=== PATIENT | male | born 1960 | race Caucasian/White ===

== ENCOUNTER → 2017-02-11 | Outpatient (CLI) | payer BC ==
--- NOTE | 2017-02-11 11:52 | USB ---
Reason for exam: additional evaluation requested from abnormal screening. History: Family history of breast cancer in mother and breast cancer in sister. Indicated problem(s): palpable abnormality in both breasts. Physical Findings: Nurse did not find any significant physical abnormalities on exam. US Breast BILAT Right breast ultrasound includes all four quadrants, the retroareolar region and axilla. Finding demonstrate a 0.7 x 0.6 x 0.4cm oval node at 10 o'clock. Left breast ultrasound includes all four quadrants, the retroareolar region and axilla. Finding demonstrate a 1.5 x 0.5 x 0.3cm dilated duct at 2 o'clock. These results were verbally communicated with the patient and result sheet given to the patient on 02/11/17. ASSESSMENT: Benign, BI-RAD 2 RECOMMENDATION: Surgical consultation. Patient scheduled an appointment for 02/12/[address] Diaz PRELIMINARY REPORT CALLED AND FAXED TO DR. DIAZ ON 02/11/17 AT 300/TMP.
== END | disposition home or self-care (01) ==
LOC: RADUSWWP 07:59
PROVIDERS: ATTEND Family Medicine
DX: N62 Hypertrophy of breast (principal)

== ENCOUNTER → 2017-02-20 | Outpatient (CLI) | payer BC ==
--- NOTE | 2017-02-20 08:28 | MM ---
Reason for exam: clinical finding. History: Family history of breast cancer in mother and breast cancer in sister. Indicated problem(s): lump or thickening in the right breast. Physical Findings: Nurse did not find any significant physical abnormalities on exam. [facility] Diagnostic Mammo w CAD KISHAN Bilateral CC and MLO view(s) were taken. There are scattered fibroglandular densities. Finding: There are typically benign round calcifications in the left breast. There is no suspicious dominant lesion. Benign axillary lymph nodes bilaterally. These results were verbally communicated with the patient and result sheet given to the patient on 02/20/17. ASSESSMENT: Benign, BI-RAD 2 RECOMMENDATION: Clinical management of both breasts. Manage patient on a clinical basis.
[2017-02-20 11:33] LABS: Follicle Stimulating Hormone 5.9 mIU/mL (1.6-9.7); Prolactin 13.7 ng/mL (3.7-17.9)
== END | disposition home or self-care (01) ==
LOC: RADMAMWWP 06:56
PROVIDERS: ATTEND Surgery
DX: N62 Hypertrophy of breast (principal)
CPT/HCPCS: 82626; 83001; 83002; 82670; 84443; 84146; 84403; 84702; 36415; G0204

== ENCOUNTER → 2017-05-21 | Outpatient (CLI) | payer BC ==
--- NOTE | 2017-05-21 22:22 | CONS ---
Primary care physician: Dr. Patel. Referring physician is Dr. Kohler. REASON FOR CONSULTATION: Sleep apnea. This is a 56-year-old male patient referred to the sleep center to be investigated for sleep apnea. He has loud snoring. He wakes up sometimes gasping for air. He has restlessness in his lower extremities. Occasionally grinds his teeth and he has nocturia. He goes to be around 10 p.m. , wakes up at 6 a.m. in the morning. Feels non-refreshed. Does not take any naps during the day. 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 Does not drink. Does not smoke. Weight is stable over the past one year although over all over the past five years he has gained some weight. No motor vehicle accident because of feeling drowsy or sleepy. His current Phoenix score is 8. Past medical history: 1. Obesity. 2. Grinding, 3. Depression. 4. Anxiety. 5. CVA. 6. Coronary artery disease with previous [place] and stenting. 7. Hyperlipidemia. 8. ( ) resected. 9. Hypertension. Surgical history: Resection of adrenal nodule/tumor. Hernia repair times two. Varicose vein stripping. Drug allergies are not known. Outpatient Medications: 1. Nitrostat 0.4 on a prn basis. 2. Ativan 0.5 on a prn basis. 3. Plavix 75 daily. 4. Metoprolol 25 mg twice a day. 5. Aspirin 325 mg a day. 6. Lexapro 10 mg po daily. 7. Lisinopril 20 mg po daily. 8. Atorvastatin 80 mg po daily. 9. Norvasc 5 mg po daily. 10. Imdur 30 mg po daily. SOCIAL HISTORY: Nonsmoker. Social alcohol drinker. No history of substance abuse or IV drugs. FAMILY HISTORY: Negative for sleep apnea. Mother had hypertension and coronary artery disease. Father had kidney cancer. REVIEW OF SYSTEMS: 12 point review of systems was done. All of the positive findings were mentioned above in the history of present illness. BP 114/78. Pulse 62, respiratory rate 16, temperature 97.8, saturation 96% on room air. Weight is 259, height 5 feet 11 inches. Neck size is 17. BMI 35.6. General appearance: Calm, comfortable. In no acute distress. HEENT: Negative for JVD. No goiter. No neck masses. Crowding in the posterior pharynx. Grinding of the teeth and an overbite. Lungs clear to auscultation. Heart sounds are regular rate and rhythm, normal S1, S2. Abdomen soft, nontender, no organomegaly. Extremities: No edema, cyanosis or clubbing. IMPRESSION: 1. Clinically suspected obstructive sleep apnea under investigation. 2. Snoring. 3. Overbite with grinding. 4. Hypertension. 5. ( ) adenoma resected. 6. Hyperlipidemia. 7. Coronary artery disease with previous myocardial infarction requiring stenting. 8. CVA. 9. Obesity, BMI 35.6. PLAN: 1. Proceed with sleep study to investigate this patients symptoms of obstructive sleep apnea. 2. We will continue to follow and make further recommendations based on his progress. CHELSEA
== END | disposition home or self-care (01) ==
LOC: SLEEP 13:11
PROVIDERS: ATTEND Internal Medicine Critical Care Medicine
DX: G47.30 Sleep apnea, unspecified (principal); I10 Essential (primary) hypertension; E78.5 Hyperlipidemia, unspecified; E66.9 Obesity, unspecified; M26.29 Other anomalies of dental arch relationship; G47.63 Sleep related bruxism; R06.83 Snoring; I25.10 Atherosclerotic heart disease of native coronary artery without angina pectoris; Z68.35 Body mass index [BMI] 35.0-35.9, adult; F32.9 Major depressive disorder, single episode, unspecified; F41.9 Anxiety disorder, unspecified; Z86.73 Personal history of transient ischemic attack (TIA), and cerebral infarction without residual deficits
CPT/HCPCS: 99211

== ENCOUNTER → 2017-07-05 | Outpatient (CLI) | payer BC ==
[2017-07-05 10:46] LABS: ALT 64 U/L (21-72); AST 32 U/L (17-59); Alkaline Phosphatase 140 U/L (38-126); Anion Gap 9 mmol/L; Blood Urea Nitrogen 14 mg/dL (9-20); Calcium 8.9 mg/dL (8.4-10.2); Carbon Dioxide 28 mmol/L (22-30); Chloride 102 mmol/L (98-107); Cholesterol 104 mg/dL (<200); Glucose 197 mg/dL (74-99); HDL Cholesterol 29 mg/dL (40-60); Non-African American GFR(MDRD) >60 (>60 ml/min/1.73 sqM); Potassium 4.1 mmol/L (3.5-5.1); Sodium 139 mmol/L (137-145); Total Bilirubin 0.6 mg/dL (0.2-1.3); Total Protein 6.7 g/dL (6.3-8.2)
== END | disposition home or self-care (01) ==
LOC: LABWHC1 09:27
PROVIDERS: ATTEND Internal Medicine Interventional Cardiology
DX: E78.2 Mixed hyperlipidemia (principal)
CPT/HCPCS: 36415; 80053; 80061

== ENCOUNTER → 2017-12-03 | Outpatient (CLI) | payer OTHER ==
--- NOTE | 2017-12-03 18:01 | PN ---
PROGRESS NOTE SLEEP CENTER PROGRESS NOTE: This is a pleasant 57-year-old male patient diagnosed having severe symptomatic obstructive sleep apnea with an AHI of 54. During his last evaluation the patient's compliancy data showed suboptimal use. We tried to do some changes with his mask. He was using a Mirage FX nose mask and I switched him to an AirFit P10, and subsequently he decided to go back on his Mirage FX nose mask. He became more compliant and he got progressively more used to his CPAP machine. Currently he is an auto CPAP unit with a minimum pressure of 4, maximum of 12, and he has been averaging around 8.4 hours of CPAP use every night. His CPAP use for more than 4 hours is 28 out of 30. He is benefitting from the treatment. He is waking up much more alert and awake during the day. Leak factor is only 7 L and his AHI is down to 1.4. This is a complete absolute success. Weight is stable at 267. No new complaints otherwise for now. BP is 166/93, pulse 60, respirations 14, temperature 97.4, saturation 92% on room air. Weight is 267. [place] score is 3. BMI 38.3. GENERAL APPEARANCE: Calm, comfortable. No acute distress. Head is atraumatic, normocephalic. Neck is short, supple. No crowding of the posterior pharynx. LUNGS: Clear to auscultation. Heart sounds are regular rate and rhythm. Normal S1, S2. No S3, S4. No murmurs. Abdomen is soft, nontender. No organomegaly. EXTREMITIES: No edema. No cyanosis or clubbing. NEUROLOGIC: Alert and oriented x3. There is no focal neurological deficit. PSYCHIATRIC: No anxiety or depression. IMPRESSION: 1. Severe symptomatic obstructive sleep apnea with an AHI of 54. The patient is currently on auto CPAP, minimum pressure of 4, maximum pressure of 12. His overall compliance has improved and the patient is feeling much better as he continues to benefit from the treatment. 2. Hypersomnia, improved. 3. Obesity with a body mass index of 38. 4. Bruxism. 5. Depression. 6. Cerebrovascular accident. 7. Coronary disease with previous myocardial infarction. 8. Hyperlipidemia. 9. Hypertension. PLAN: Continue CPAP therapy at the same level of pressure utilizing a Mirage FX nose mask. See me back in a year's time, earlier if needed. Encourage weight loss. I will continue to follow. MMODL / IJN: [id number] /
== END | disposition home or self-care (01) ==
LOC: SLEEP 16:40
PROVIDERS: ATTEND Internal Medicine Critical Care Medicine
DX: G47.33 Obstructive sleep apnea (adult) (pediatric) (principal); G47.10 Hypersomnia, unspecified; G47.63 Sleep related bruxism; E66.9 Obesity, unspecified; F32.9 Major depressive disorder, single episode, unspecified; I25.10 Atherosclerotic heart disease of native coronary artery without angina pectoris; I25.2 Old myocardial infarction; E78.5 Hyperlipidemia, unspecified; I10 Essential (primary) hypertension; Z68.38 Body mass index [BMI] 38.0-38.9, adult; Z99.89 Dependence on other enabling machines and devices

== ENCOUNTER → 2018-02-25 | Outpatient (CLI) | payer OTHER ==
[2018-02-25 11:12] LABS: ALT 56 U/L (21-72); AST 33 U/L (17-59); Albumin 3.6 g/dL (3.5-5.0); Alkaline Phosphatase 128 U/L (38-126); Anion Gap 11 mmol/L; Blood Urea Nitrogen 17 mg/dL (9-20); Carbon Dioxide 32 mmol/L (22-30); Chloride 97 mmol/L (98-107); Cholesterol 113 mg/dL (<200); Glucose 113 mg/dL (74-99); HDL Cholesterol 31 mg/dL (40-60); LDL Cholesterol,Calculated 58 mg/dL (0-99); Potassium 3.8 mmol/L (3.5-5.1); Sodium 140 mmol/L (137-145); Total Bilirubin 0.5 mg/dL (0.2-1.3); Total Protein 6.5 g/dL (6.3-8.2); Triglycerides 120 mg/dL (<150)
== END | disposition home or self-care (01) ==
LOC: LABWHC1 09:30
PROVIDERS: ATTEND Internal Medicine Interventional Cardiology
DX: E78.2 Mixed hyperlipidemia (principal)
CPT/HCPCS: 36415; 80053; 80061

== ENCOUNTER → 2018-05-22 | Outpatient (CLI) | payer OTHER | END | disposition home or self-care (01) | LOC: RADMRIMAIN 12:00 | PROVIDERS: ATTEND Family Medicine | DX: Z53.9 Procedure and treatment not carried out, unspecified reason (principal) ==

== ENCOUNTER 2018-05-28 09:07 | Observation (INO) | payer OTHER ==
[2018-05-28] MEDS ORDERED: ASPIRIN 81 MG PO STA (09:36)
--- NOTE | 2018-05-28 09:40 | ED ---
Chest Pain HPI - General Chief Complaint: Chest Pain Stated Complaint: Chest pain Time Seen by Provider: 05/28/18 09:25 Source: patient, RN notes reviewed, old records reviewed Mode of arrival: wheelchair Limitations: no limitations - History of Present Illness Initial Comments: This is a 56-year-old male with a history of heart disease and type 2 diabetes with peripheral neuropathy who states she's been having episodes of intermittent anterior chest pain for past 2 days also elevations in his blood pressure. He states the pain is burning when it is severe 7 and 8/10 severity some sweats associated with it no shortness breath nausea vomiting or other symptoms. He states the pain will come on for anywhere from a few minutes to an hour to 2 hours before resolves. He denies any other complaints at this time he does feel remains him up prior heart pain he's had it. He also notices lately he's been having more tingling in his chest area that he thought was attributed to his neuropathy. MD Complaint: chest pain - Related Data Home Medications Medication Instructions Recorded Confirmed Aspirin EC [Ecotrin Low Dose] 81 mg PO DAILY 05/28/18 05/28/18 Calcium Carbonate [Calcium] 600 mg PO DAILY 05/28/18 05/28/18 Clopidogrel [Plavix] 75 mg PO DAILY 05/28/18 05/28/18 Escitalopram [Lexapro] 10 mg PO DAILY 05/28/18 05/28/18 Hydrochlorothiazide 50 mg PO DAILY 05/28/18 05/28/18 Ibuprofen [Motrin] 800 mg PO Q6H PRN 05/28/18 05/28/18 Isosorbide Mononitrate ER [Imdur] 30 mg PO DAILY 05/28/18 05/28/18 Lisinopril [Zestril] 20 mg PO BID 05/28/18 05/28/18 Metoprolol Tartrate [Lopressor] 25 mg PO BID 05/28/18 05/28/18 Pregabalin [Lyrica] 75 mg PO TID 05/28/18 05/28/18 glipiZIDE [Glucotrol] 5 mg PO AC-BID 05/28/18 05/28/18 metFORMIN HCL 1,000 mg PO TID 05/28/18 05/28/18 Allergies Allergy/AdvReac Type Severity Reaction Status Date / Time perflutren [From [employer] AdvReac Unknown Verified 05/28/18 09:47 Review of Systems ROS Statement: Those systems with pertinent positive or pertinent negative responses have been documented in the HPI. ROS Other: All systems not noted in ROS Statement are negative. EKG Findings - EKG Results: EKG: interpreted by THOR, sinus rhythm (Sinus rhythm rate of 55. Interval 180 QRS duration 106 QT since QTC 456/[address]-T wave changes this compares with an EKG dated 09/02/13) Past Medical History Past Medical History: Diabetes Mellitus, Myocardial Infarction ([place]) Additional Past Medical History / Comment(s): phlebitis History of Any Multi-Drug Resistant Organisms: None Reported Past Surgical History: Heart Catheterization With Stent, Hernia Repair Additional Past Surgical History / Comment(s): tumor removed from left adrenal gland, left adrenal gland removed, stomach tumor removed Past Psychological History: Depression Smoking Status: Former smoker Past Alcohol Use History: Occasional Past Drug Use History: None Reported General Exam - General Exam Comments Initial Comments: This is a well-developed well-nourished awake alert oriented 3 male Limitations: no limitations General appearance: alert, in no apparent distress Head exam: Present: atraumatic, normocephalic, normal inspection Eye exam: Present: normal appearance, PERRL, EOMI. Absent: scleral icterus, conjunctival injection, periorbital swelling ENT exam: Present: normal exam, mucous membranes moist Neck exam: Present: normal inspection. Absent: tenderness, meningismus, lymphadenopathy Respiratory exam: Present: normal lung sounds bilaterally. Absent: respiratory distress, wheezes, rales, rhonchi, stridor Cardiovascular Exam: Present: regular rate, normal rhythm, normal heart sounds. Absent: systolic murmur, diastolic murmur, rubs, gallop, clicks GI/Abdominal exam: Present: soft, normal bowel sounds. Absent: distended, tenderness, guarding, rebound, rigid Extremities exam: Present: normal inspection, full ROM, normal capillary refill. Absent: tenderness, pedal edema, joint swelling, calf tenderness Back exam: Present: normal inspection Neurological exam: Present: alert, oriented X3, CN II-XII intact Psychiatric exam: Present: normal affect, normal mood Skin exam: Present: warm, dry, intact, normal color. Absent: rash Course Vital Signs 05/28/18 09:10 Temperature 98 F Pulse Rate 60 Respiratory 18 Rate Blood Pressure 180/104 O2 Sat by Pulse 96 Oximetry Chest Pain MDM - MDM I did reevaluate the patient no further pain I did discuss the case with Dr. Bull. Patient will be admitted for evaluation for chest pain. X-ray shows no definite acute findings. Critical Care Time Critical Care Time: Yes Critical Care Time: 31 minutes of critical care time includes initial presentation with history physical labs x-rays reevaluation the patient discussed with the patient and admitting physician admission orders and documentation the above. Disposition Clinical Impression: Unstable angina pectoris, Atypical chest pain Disposition: ADMITTED IP TO THIS HOSP Condition: Stable Referrals: Trip Patel DO [Primary Care Provider] - 1-2 days
[2018-05-28 10:24] LABS: Basophils # (A) 0.1 k/uL (0-0.2); Basophils % (A) 1 %; Eosinophils # (A) 0.2 k/uL (0-0.7); Eosinophils % (A) 3 %; HCT 42.2 % (39.0-53.0); Lymphocytes # (A) 2.2 k/uL (1.0-4.8); Lymphocytes % (A) 35 %; MCH 29.1 pg (25.0-35.0); MCHC 33.3 g/dL (31.0-37.0); MCV 87.3 fL (80.0-100.0); Mean Platelet Volume 7.2; Monocytes # (A) 0.3 k/uL (0-1.0); Monocytes % (A) 5 %; Neutrophils # (A) 3.5 k/uL (1.3-7.7); Neutrophils % (A) 54 %; Platelet Count 214 k/uL (150-450); RBC 4.83 m/uL (4.30-5.90); RDW 13.4 % (11.5-15.5); WBC 6.5 k/uL (3.8-10.6)
--- NOTE | 2018-05-28 10:30 | XR ---
EXAMINATION TYPE: XR chest 2V DATE OF EXAM: 05/28/2018 COMPARISON: 12/30/2014 HISTORY: 57-year-old male with chest pain TECHNIQUE: PA and lateral views FINDINGS: Heart upper limits of normal in size. Mild interstitial prominence and mild peribronchial cuffing. Field zy density at the cardiac apex suggests epicardial fat pad. No consolidation or pleural effusion. IMPRESSION: 1. Borderline heart size. 2. Mild peribronchial cuffing could reflect bronchitis or asthma. Otherwise, no acute process seen.
[2018-05-28 10:40] LABS: ALT 61 U/L (21-72); AST 35 U/L (17-59); Albumin 3.6 g/dL (3.5-5.0); Alkaline Phosphatase 123 U/L (38-126); Anion Gap 9 mmol/L; Blood Urea Nitrogen 13 mg/dL (9-20); Carbon Dioxide 29 mmol/L (22-30); Chloride 100 mmol/L (98-107); Glucose 148 mg/dL (74-99); Magnesium 1.6 mg/dL (1.6-2.3); Partial Thromboplastin Time 23.1 sec (22.0-30.0); Potassium 3.9 mmol/L (3.5-5.1); Sodium 138 mmol/L (137-145); Total Bilirubin 0.5 mg/dL (0.2-1.3); Total Protein 6.6 g/dL (6.3-8.2)
[2018-05-28] MEDS ORDERED: HEPARIN SODIUM,PORCINE 5,000 UNIT/ML 1 ML VIAL IV ONE (10:49)
[2018-05-28] MEDS ORDERED: NITROGLYCERIN SL TABS 0.4 MG TAB SUBLINGUAL PRN (10:49)
[2018-05-28 11:07] LABS: Creatine Kinase 108 U/L (55-170)
[2018-05-28 11:22] LABS: Troponin I <0.012 ng/mL (0.000-0.034)
[2018-05-28] MEDS: HEPARIN SOD,PORK IN 0.45% NACL 25,000 UNIT in 0.45% NACL 1 500ML.BAG IV SCH (11:28)
[2018-05-28 12:05] LABS: Glucose,Whole Blood 116 mg/dL (75-99)
[2018-05-28] MEDS: INSULIN ASPART 100 UNIT/ML 1 ML 10 ML VIAL SQ SCH ×3 (12:44→20:30)
[2018-05-28] MEDS: SODIUM CHLORIDE 0.9% 1,000 ML IV SCH (12:47)
[2018-05-28] MEDS ORDERED: ACETAMINOPHEN TAB 325 MG TAB PO PRN (14:25)
[2018-05-28] MEDS: PREGABALIN 75 MG CAP PO SCH ×2 (16:54→21:35)
[2018-05-28 16:59] LABS: Creatine Kinase 100 U/L (55-170)
[2018-05-28 17:12] LABS: Troponin I <0.012 ng/mL (0.000-0.034)
[2018-05-28 17:22] LABS: Glucose,Whole Blood 118 mg/dL (75-99)
[2018-05-28 19:11] LABS: Hemoglobin A1C 8.2 % (4.0-6.0)
[2018-05-28] MEDS: METOPROLOL TARTRATE 25 MG TAB PO SCH (19:41)
[2018-05-28] MEDS: HEPARIN SODIUM,PORCINE 5,000 UNIT/ML 1 ML VIAL IV PRN (19:41)
[2018-05-28] MEDS: LISINOPRIL 20 MG TAB PO SCH (19:42)
[2018-05-28 20:25] LABS: Glucose,Whole Blood 200 mg/dL (75-99)
[2018-05-28 23:03] LABS: Troponin I 0.015 ng/mL (0.000-0.034)
[2018-05-29 02:56] LABS: Cholesterol 102 mg/dL (<200); HDL Cholesterol 28 mg/dL (40-60); LDL Cholesterol,Calculated 50 mg/dL (0-99); Triglycerides 121 mg/dL (<150)
[2018-05-29] MEDS: HEPARIN SODIUM,PORCINE 5,000 UNIT/ML 1 ML VIAL IV PRN (03:02)
[2018-05-29] MEDS: HEPARIN SOD,PORK IN 0.45% NACL 25,000 UNIT in 0.45% NACL 1 500ML.BAG IV SCH (04:35)
[2018-05-29 06:49] LABS: Glucose,Whole Blood 161 mg/dL (75-99)
[2018-05-29 08:28] VITALS: RESP 18
[2018-05-29] MEDS ORDERED: ASPIRIN 325 MG TAB PO SCH (09:00)
[2018-05-29] MEDS ORDERED: HYDROCHLOROTHIAZIDE 50 MG TAB PO SCH (09:00)
[2018-05-29] MEDS ORDERED: CLOPIDOGREL 75 MG TAB PO SCH (09:00)
[2018-05-29] MEDS ORDERED: NON-FORMULARY DRUG (Aspirin Ec 81 MG) PO SCH (09:00)
[2018-05-29] MEDS ORDERED: ISOSORBIDE MONONITRATE ER 30 MG TAB.ER.24H PO SCH (09:00)
[2018-05-29] MEDS ORDERED: CALCIUM CARBONATE 500 MG CHEWABLE PO SCH (09:00)
[2018-05-29] MEDS ORDERED: ESCITALOPRAM 10 MG TAB PO SCH (09:00)
[2018-05-29] MEDS: INSULIN ASPART 100 UNIT/ML 1 ML 10 ML VIAL SQ SCH ×3 (10:20→18:02)
[2018-05-29] MEDS: LISINOPRIL 20 MG TAB PO SCH (10:25)
[2018-05-29] MEDS: PREGABALIN 75 MG CAP PO SCH ×2 (10:25→18:02)
[2018-05-29] MEDS: METOPROLOL TARTRATE 25 MG TAB PO SCH (10:25)
[2018-05-29] MEDS ORDERED: SODIUM CHLORIDE 0.9% 1,000 ML in EMPTY BAG 1 BAG IV ONE (10:49)
[2018-05-29] MEDS ORDERED: ALPRAZolam 0.5 MG TAB PO PRN (10:49)
[2018-05-29] MEDS ORDERED: ALPRAZolam 0.25 MG TAB PO PRN (10:49)
--- NOTE | 2018-05-29 10:55 | P.CRDCN ---
History of Present Illness History of present illness: Mr. Trent is a pleasant 57-year-old male past medical history significant for coronary artery disease s/p stenting of ramus, hypertension, dyslipidemia, obstructive sleep apnea and diabetes mellitus. Most recent cardiac catheterization performed in 2013 revealed patent stent of the ramus intermedius, mild plaque 10-20% of the distal left main, mild ectatic proximal 20-30% disease of the LAD as well as 40% plaque distally, 30-40% proximal disease in the circumflex artery and proximal 30% stenosis of the RCA. He follows with Dr. Kohler in the office. We have been asked to see him in consultation for chest pain. He complains of a pressure burning sensation intermittently for the last 2 days with radiation into neck and left jaw at times with shortness of breath and diaphoresis. No specific aggravating or alleviating factors. Symptoms come at rest mostly. Denies palpitations, dizziness, nausea or vomiting. He denies PND, orthopnea, cough, fever or chills. EKG reveals sinus bradycardia with heart rate 55, no acute ST or T-wave abnormalities noted. Chest xray shows eris-bronchial cuffing with no acute cardiopulmonary process. Laboratory data reviewed, hemoglobin 14.0, platelets 214, sodium 138, potassium 3.9, magnesium 1.6, creatinine 0.62, cardiac enzymes negative 3, proBNP 67, LDL 50 and HDL 28. Current cardiac medications include Imdur 30 mg daily, hydrochlorothiazide 50 mg daily, lisinopril 20 mg twice a day, metoprolol 25 mg twice a day, aspirin 81 mg daily and Plavix 75 mg daily. He also takes Motrin, Glucotrol, Lexapro, metformin and Lyrica. Last stress test in the office was Cardiolite in 2015 was negative for reversible ischemia with fixed defect inferobasal wall. Most recent echo in the office 07/2017 preserved LV systolic function with EF 60 % with mildly dilated LV and mild MR and TR. Review of Systems At the time of my exam: CONSTITUTIONAL: Denies fever. Denies chills. EYES: Denies blurred vision. Denies vision changes. Denies eye pain. EARS, NOSE, MOUTH & THROAT: Denies headache. Denies sore throat. Denies ear pain. CARDIOVASCULAR: Denies chest pain. Denies shortness of breath. Denies orthopnea. Denies PND. Denies palpitations. RESPIRATORY: Denies cough. GASTROINTESTINAL: Denies abdominal pain. Denies diarrhea. Denies constipation. Denies nausea. Denies vomiting. MUSCULOSKELETAL: Denies myalgias. INTEGUMENTARY: Denies pruitis. Denies rash. NEUROLOGIC: Denies numbness. Denies tingling. Denies weakness. PSYCHIATRIC: Denies anxiety. Denies depression. ENDOCRINE: Denies fatigue. Denies weight change. Denies polydipsia. Denies polyurina. GENITOURINARY: Denies burning, hematuria or urgency with micturation. HEMATOLOGIC: Denies history of anemia. Denies bleeding. Past Medical History Past Medical History: Coronary Artery Disease (CAD), CVA/TIA, Diabetes Mellitus , Hyperlipidemia, Hypertension, Myocardial Infarction (NH), Osteoarthritis (OA) , Pneumonia, Sleep Apnea/CPAP/BIPAP Additional Past Medical History / Comment(s): phlebitis left lower extremity, diabetic neuropathy involving the feet and hands, obstructive sleep apnea on CPAP.tirgger finger bay finger, middle finger and thumbs alfred hands, chronic back pain-herniated discs [id number]. spinal stenosis. "told he has had a tia in past" Last Myocardial Infarction Date:: 2013 History of Any Multi-Drug Resistant Organisms: None Reported Past Surgical History: Adenoidectomy, Heart Catheterization With Stent, Hernia Repair, Tonsillectomy Additional Past Surgical History / Comment(s): benign tumor removed from left adrenal gland in 2005 , left adrenal gland removed, benign stomach tumor removed (as infant), alfred inguinal hernia removed, lt leg vein stripping x2 Date of Last Stent Placement:: 2013 Smoking Status: Former smoker - Past Family History Mother Family Medical History: COPD, Hypertension Additional Family Medical History / Comment(s): Mother is alive at age 87 with history of hypertension, copd-2nd hand smoke. Grandmother had history of myocardial infarction and diabetes. Brother(s) Additional Family Medical History / Comment(s): Brothers have history of hypertension. Patient has 1 sister with no major medical problems. Patient has 2 children with no major medical problems. Father Family Medical History: Cancer Additional Family Medical History / Comment(s): lung cancer. Medications and Allergies Home Medications Medication Instructions Recorded Confirmed Type Aspirin EC [Ecotrin Low Dose] 81 mg PO DAILY 05/28/18 05/28/18 History Calcium Carbonate [Calcium] 600 mg PO DAILY 05/28/18 05/28/18 History Clopidogrel [Plavix] 75 mg PO DAILY 05/28/18 05/28/18 History Escitalopram [Lexapro] 10 mg PO DAILY 05/28/18 05/28/18 History Hydrochlorothiazide 50 mg PO DAILY 05/28/18 05/28/18 History Ibuprofen [Motrin] 800 mg PO Q6H PRN 05/28/18 05/28/18 History Isosorbide Mononitrate ER [Imdur] 30 mg PO DAILY 05/28/18 05/28/18 History Lisinopril [Zestril] 20 mg PO BID 05/28/18 05/28/18 History Metoprolol Tartrate [Lopressor] 25 mg PO BID 05/28/18 05/28/18 History Pregabalin [Lyrica] 75 mg PO TID 05/28/18 05/28/18 History glipiZIDE [Glucotrol] 5 mg PO AC-BID 05/28/18 05/28/18 History metFORMIN HCL 1,000 mg PO TID 05/28/18 05/28/18 History Allergies Allergy/AdvReac Type Severity Reaction Status Date / Time perflutren [From ToutApp] AdvReac Unknown Verified 05/28/18 09:47 Physical Exam Vitals: Vital Signs Temp Pulse Pulse Pulse Resp BP BP 05/29/18 03:43 98.5 F 54 L 16 05/29/18 03:12 16 05/28/18 23:47 98.4 F 59 L 05/28/18 23:27 16 05/28/18 19:56 97.6 F 60 16 153/100 05/28/18 19:47 16 05/28/18 15:24 98.2 F 55 L 16 147/84 05/28/18 15:08 16 05/28/18 12:30 16 05/28/18 11:09 97.2 F L 55 L 16 168/88 05/28/18 09:10 98 F 60 18 180/104 BP Pulse Ox 05/29/18 03:43 151/94 95 05/29/18 03:12 05/28/18 23:47 139/80 05/28/18 23:27 05/28/18 19:56 96 05/28/18 19:47 05/28/18 15:24 97 05/28/18 15:08 05/28/18 12:30 05/28/18 11:09 96 05/28/18 09:10 96 Intake and Output 05/28/18 05/29/18 05/29/18 22:59 06:59 14:59 Intake Total 165.667 253.298 Balance 165.667 253.298 Intake: Intake, IV Titration 165.667 253.298 Amount Heparin Sod,Pork in 0.45% 165.667 253.298 NaCl 25,000 unit In 0.45 % NaCl 1 500ml.bag @ 8.1 UNITS/KG/HR 19.84 mls/hr IV .Q24H [facility] Rx#: [id number] Other: Voiding Method Toilet Toilet # Voids 1 Blood pressure 157/96 heart rate 68 afebrile maintaining oxygen saturation on room air GENERAL: This is a 57-year-old male in no apparent distress at the time of my examination. HEENT: Head is atraumatic, normocephalic. Pupils are equal, round. Sclerae anicteric. Conjunctivae are clear. Mucous membranes of the mouth are moist. Neck is supple. There is no jugular venous distention. No carotid bruit is heard. LUNGS: Clear to auscultation no wheezes, rales or rhonchi. No chest wall tenderness is noted on palpation or with deep breathing. HEART: Regular rate and rhythm without murmurs, rubs or gallops. S1 and S2 heard. ABDOMEN: Soft, nontender. Bowel sounds are heard. No organomegaly noted. EXTREMITIES: No evidence of peripheral edema and no calf tenderness noted. VASCULAR: Radial and dorsalis pedis pulses palpated, no evidence of clubbing. NEUROLOGIC: Patient is awake, alert and oriented x3. Results 05/28/18 10:10 05/28/18 10:10 Cardiac Enzymes 05/28/18 05/28/18 05/28/18 Range/Units 10:10 10:10 16:32 AST 35 (17-59) U/L CK-MB (CK-2) 1.0 1.0 (0.0-2.4) ng/mL Troponin I <0.012 <0.012 (0.000-0.034) ng/mL 05/28/18 Range/Units 22:03 AST (17-59) U/L CK-MB (CK-2) 1.0 (0.0-2.4) ng/mL Troponin I 0.015 (0.000-0.034) ng/mL Coagulation 05/28/18 05/28/18 05/29/18 Range/Units 10:10 17:53 02:07 PT 10.0 (9.0-12.0) sec APTT 23.1 26.7 32.0 H (22.0-30.0) sec Lipids 05/29/18 Range/Units 02:07 Triglycerides 121 (<150) mg/dL Cholesterol 102 (<200) mg/dL HDL Cholesterol 28 L (40-60) mg/dL CBC 05/28/18 Range/Units 10:10 WBC 6.5 (3.8-10.6) k/uL RBC 4.83 (4.30-5.90) m/uL Hgb 14.0 (13.0-17.5) gm/dL Hct 42.2 (39.0-53.0) % Plt Count 214 (150-450) k/uL Comprehensive Metabolic Panel 05/28/18 Range/Units 10:10 Sodium 138 (137-145) mmol/L Potassium 3.9 (3.5-5.1) mmol/L Chloride 100 (98-107) mmol/L Carbon Dioxide 29 (22-30) mmol/L BUN 13 (9-20) mg/dL Creatinine 0.62 L (0.66-1.25) mg/dL Glucose 148 H (74-99) mg/dL Calcium 9.0 (8.4-10.2) mg/dL AST 35 (17-59) U/L ALT 61 (21-72) U/L Alkaline Phosphatase 123 (38-126) U/L Total Protein 6.6 (6.3-8.2) g/dL Albumin 3.6 (3.5-5.0) g/dL Current Medications Generic Name Dose Route Start Last Admin Trade Name Freq PRN Reason Stop Dose Admin Acetaminophen 650 mg 05/28/18 14:25 05/28/18 14:33 Tylenol Tab PO 650 mg Q4HR PRN Administration Fever and/ or Pain Aspirin 325 mg 05/29/18 09:00 Aspirin PO DAILY [facility] Calcium Carbonate/Glycine 500 mg 05/29/18 09:00 Tums PO DAILY [facility] Clopidogrel Bisulfate 75 mg 05/29/18 09:00 Plavix PO DAILY [facility] Escitalopram Oxalate 10 mg 05/29/18 09:00 Lexapro PO DAILY [facility] Heparin Sodium (Porcine) 0 unit 05/28/18 19:28 05/29/18 03:02 Heparin IV 4,000 unit PER PROTOCOL PRN Administration Low PTT Protocol Hydrochlorothiazide 50 mg 05/29/18 09:00 Hydrodiuril PO DAILY [facility] Heparin Sodium/Sodium Chloride 500 mls @ 19.84 mls/hr 05/28/18 12:00 04:35 25,000 unit/ Sodium Chloride IV 14.16 units/kg/hr .Q24H [facility] 34.68 mls/hr Administration Protocol 8.1 UNITS/KG/HR Sodium Chloride 1,000 mls @ 20 mls/hr 05/28/18 11:00 05/28/18 12:47 Saline 0.9% IV 20 mls/hr .Q24H [facility] Administration Insulin Aspart 0 unit 05/28/18 12:30 05/28/18 20:30 Novolog SQ 3 unit ACHS [facility] Administration Protocol Isosorbide Mononitrate 30 mg 05/29/18 09:00 Imdur PO DAILY [facility] Lisinopril 20 mg 05/28/18 21:00 05/28/18 19:42 Zestril PO 20 mg BID [facility] Administration Metoprolol Tartrate 25 mg 05/28/18 21:00 05/28/18 19:41 Lopressor PO 25 mg BID [facility] Administration Nitroglycerin 0.4 mg 05/28/18 10:49 05/28/18 12:48 Nitrostat SUBLINGUAL 0.4 mg Q5M PRN Administration Chest Pain Pregabalin 75 mg 05/28/18 16:00 05/28/18 21:35 Lyrica PO 75 mg TID [facility] Administration Intake and Output 05/28/18 05/29/18 05/29/18 22:59 06:59 14:59 Intake Total 165.667 253.298 Balance 165.667 253.298 Intake: Intake, IV Titration 165.667 253.298 Amount Heparin Sod,Pork in 0.45% 165.667 253.298 NaCl 25,000 unit In 0.45 % NaCl 1 500ml.bag @ 8.1 UNITS/KG/HR 19.84 mls/hr IV .Q24H [facility] Rx#: [id number] Other: Voiding Method Toilet Toilet # Voids 1 05/28/18 10:10 05/28/18 10:10 Assessment and Plan Assessment: ASSESSMENT Unstable angina History of coronary artery disease Hypertension Dyslipidemia Diabetes mellitus PLAN Obtain 2D echocardiogram and doppler study to assess cardiac structure and function. An acute coronary event has been ruled out with no EKG evidence of ischemia and negative cardiac enzymes. We recommend proceeding with cardiac catheterization to assess for progression of coronary artery disease. I have discussed the risks, benefits and alternative therapies for the above- mentioned procedure and for both sedation/analgesia as well as necessary blood product administration, if indicated, as they pertain to this patient. The patient has indicated understanding and acceptance of the risks and procedures discussed. Questions have been answered appropriately and he is agreeable to move forward with above stated procedure. Dr. Kohler will do the procedure this afternoon. Further recommendations to follow based on clinical course and catheterization findings. Thank you kindly for this consultation. Nurse Practitioner note has been reviewed, I agree with a documented findings and plan of care. Patient was seen and examined.
[2018-05-29] MEDS: SODIUM CHLORIDE 0.9% 1,000 ML IV SCH (12:15)
[2018-05-29 12:25] LABS: Glucose,Whole Blood 155 mg/dL (75-99)
--- NOTE | 2018-05-29 12:40 | P.PN ---
Subjective Progress Note Date: 05/29/18 This is a 57-year-old male patient of Dr. Patel in Dr. 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 Patient gives history of sudden onset of chest pain that has been ongoing on and off for the past couple of days. He states it somewhat similar to the pain he had with his myocardial infarction 4 years ago. It has been lasting for longer periods of time and up to 10 minutes. It is a burning type sensation in the middle of his chest and upper arms. Patient came into [facility] emergency center for evaluation. Initial troponin was negative. EKG was sinus bradycardia with no acute ST changes. Chest x-ray showed borderline heart size. Mild peribronchial cuffing could reflect bronchitis or asthma. No acute process. He was started on a full strength aspirin, resumed on his home medications and placed on the observation unit with cardiology consult. 05/29 patient examined bedside. Denies any chest pain but does have some tingling burning sensation in the substernal area. Denies any shortness of breath. Troponin 3 negative EKG with no ST or T-wave changes Patient will be taken for cardiac cath today. Objective - Vital Signs Vital signs: Vital Signs Temp 98.4 F 05/29/18 11:49 Pulse 58 L 05/29/18 11:49 Resp 18 05/29/18 11:49 BP 152/97 05/29/18 11:49 Pulse Ox 94 L 05/29/18 11:49 Intake & Output 05/28/18 05/29/18 05/29/18 18:59 06:59 18:59 Intake Total 480 418.965 Balance 480 418.965 Weight 122.47 kg Intake: Intake, IV Titration 418.965 Amount Heparin Sod,Pork in 0.45% 418.965 NaCl 25,000 unit In 0.45 % NaCl 1 500ml.bag @ 8.1 UNITS/KG/HR 19.84 mls/hr IV .Q24H [facility] Rx#: [id number] Oral 480 Other: Voiding Method Toilet Toilet Toilet # Voids 1 1 - Exam - Constitutional General appearance: cooperative, no acute distress, obese - EENT Eyes: anicteric sclerae, PERRLA, normal appearance ENT: hearing grossly normal - Neck Neck: no lymphadenopathy, normal ROM, no other, no rigidity, no stridor, no thyromegaly - Respiratory Respiratory: bilateral: CTA, negative: diminished, dullness, rales, rhonchi - Cardiovascular Rhythm: regular Heart sounds: normal: S1, S2 Abnormal Heart Sounds: 2+systolic murmur, no diastolic murmur, no rub, no S3 Gallop, no S4 Gallop, no click, no other - Gastrointestinal General gastrointestinal: normal bowel sounds, soft - Integumentary Integumentary: no rash - Neurologic Neurologic: CNII-XII intact - Musculoskeletal Musculoskeletal: gait normal, strength equal bilaterally - Psychiatric Psychiatric: A&O x's 3, appropriate affect - Labs CBC & Chem 7: 05/28/18 10:10 05/28/18 10:10 Labs: Abnormal Lab Results - Last 24 Hours (Table) 05/28/18 05/28/18 05/28/18 Range/Units 10:10 17:18 20:24 APTT (22.0-30.0) sec POC Glucose (mg/dL) 118 H 200 H (75-99) mg/dL Hemoglobin A1c 8.2 H (4.0-6.0) % HDL Cholesterol (40-60) mg/dL 05/29/18 05/29/18 05/29/18 Range/Units 02:07 02:07 06:47 APTT 32.0 H (22.0-30.0) sec POC Glucose (mg/dL) 161 H (75-99) mg/dL Hemoglobin A1c (4.0-6.0) % HDL Cholesterol 28 L (40-60) mg/dL 05/29/18 05/29/18 Range/Units 09:05 12:04 APTT 43.5 H (22.0-30.0) sec POC Glucose (mg/dL) 155 H (75-99) mg/dL Hemoglobin A1c (4.0-6.0) % HDL Cholesterol (40-60) mg/dL Assessment and Plan Plan: #1 acute chest pain likely secondary to unstable angina with history of coronary artery disease. Echocardiogram ordered. EKG with no evidence of ischemia, no ST-T wave changes, troponin 3 negative. Plan for cardiac cath today. Continue heparin drip #2 history of coronary artery disease continue patient on aspirin 81 mg Plavix 75 mg, metoprolol 25 mg twice a day, Imdur 30 mg by mouth daily #3 type 2 diabetes controlled with metformin and glipizide. Hold metformin and glipizide to to contract induced nephropathy. Continue insulin sliding scale #4 hypertension continue lisinopril 20 mg twice a day, hydrochlorothiazide 50 mg by mouth daily, metoprolol 25 mg by mouth twice a day #5 history of depression continue Lexapro 10 mg by mouth daily #6 diabetic neuropathy continue Lyrica 75 mg 3 times a day #7 DVT prophylaxis with heparin drip CODE STATUS full code
[2018-05-29] MEDS ORDERED: VERAPAMIL 2.5 MG/ML 2 ML AMP ONE (12:52)
[2018-05-29] MEDS ORDERED: HEPARIN SODIUM 1,000 UN/ML (10ML VL) ONE (12:53)
[2018-05-29] MEDS ORDERED: fentaNYL (PF) 50 MCG/ML 2 ML AMP ONE (12:53)
[2018-05-29] MEDS ORDERED: LIDOCAINE 1% INJ 10MG/ML (20 ML MDV) ONE (12:53)
[2018-05-29] MEDS ORDERED: LIDOCAINE 1% INJ 10MG/ML (10 ML MDV) SQ ONE (13:02)
[2018-05-29] MEDS ORDERED: fentaNYL (PF) 50 MCG/ML 2 ML AMP IV ONE (13:02)
[2018-05-29] MEDS ORDERED: MIDAZOLAM 2 MG/2 ML VIAL ONE (13:02)
[2018-05-29] MEDS ORDERED: VERAPAMIL SYRINGE (5 MG/10 ML) INTRAARTER ONE (13:03)
--- NOTE | 2018-05-29 13:03 | ECHOF ---
Referral Reason:cp MEASUREMENTS -------- HEIGHT: 182.9 cm WEIGHT: 122.5 kg BP: 151/94 RVIDd: 3.4 cm (< 3.3) IVSd: 1.5 cm (0.6 - 1.1) LVIDd: 5.2 cm (3.9 - 5.3) LVPWd: 1.9 cm (0.6 - 1.1) IVSs: 1.8 cm LVIDs: 4.3 cm LVPWs: 1.6 cm LA Diam: 3.5 cm (2.7 - 3.8) LAESV Index (A-L): 21.21 ml/m Ao Diam: 3.4 cm (2.0 - 3.7) AV Cusp: 2.0 cm (1.5 - 2.6) LA Diam: 4.4 cm (2.7 - 3.8) MV EXCURSION: 17.354 mm (> 18.000) MV EF SLOPE: 76 mm/s (70 - 150) EPSS: 0.6 cm MV E Royal: 0.59 m/s MV DecT: 197 ms MV A Royal: 0.65 m/s MV E/A Ratio: 0.90 RAP: 5.00 mmHg RVSP: 16.62 mmHg FINDINGS -------- Sinus rhythm. This was a technically adequate study. The left ventricular size is normal. There is moderate concentric left ventricular hypertrophy. O verall left ventricular systolic function is low-normal with, an EF between 50 - 55 %. The right ventricle is mildly enlarged. The left atrial size is normal. Normal LA size by volume 22+/-6 ml/m2. The right atrial size is normal. The aortic valve is trileaflet, and appears structurally normal. No aortic stenosis or regurgitation. Mild mitral annular calcification present. Mild mitral regurgitation is present. Mild tricuspid regurgitation present. There is no evidence of pulmonary hypertension. The right v entricular systolic pressure, as measured by Doppler, is 16.62mmHg. Trace/mild (physiologic) pulmonic regurgitation. The aortic root size is normal. There is no pericardial effusion. CONCLUSIONS -------- 1. The left ventricular size is normal. 2. There is moderate concentric left ventricular hypertrophy. 3. Overall left ventricular systolic function is low-normal with, an EF between 50 - 55 %. 4. The right ventricle is mildly enlarged. 5. The left atrial size is normal. 6. The right atrial size is normal. 7. The aortic valve is trileaflet, and appears structurally normal. No aortic stenosis or regurgitati on. 8. Mild mitral annular calcification present. 9. Mild mitral regurgitation is present. 10. Mild tricuspid regurgitation present. 11. There is no evidence of pulmonary hypertension. 12. The right ventricular systolic pressure, as measured by Doppler, is 16.62mmHg. 13. Trace/mild (physiologic) pulmonic regurgitation. 14. The aortic root size is normal. 15. There is no pericardial effusion. SPORTS INTERN: Erendira Sauceda RDCS
[2018-05-29] MEDS ORDERED: MIDAZOLAM 2 MG/2 ML VIAL IV ONE (13:05)
[2018-05-29] MEDS ORDERED: IV FLUID CONTINUATION 1,000 ML IV ONE (13:06)
[2018-05-29] MEDS ORDERED: HEPARIN SODIUM 1,000 UN/ML (10ML VL) IV ONE (13:11)
[2018-05-29] MEDS ORDERED: IOPAMIDOL-370 125ML BTL INJ ONE (13:16)
[2018-05-29] MEDS ORDERED: RX INFO: IV CONTRAST WAS GIVEN 1 EACH MISC MISCELLANE PRN (13:27)
[2018-05-29] MEDS ORDERED: SODIUM CHLORIDE 0.9% 1,000 ML IV SCH (13:30)
[2018-05-29] MEDS ORDERED: ONDANSETRON 4 MG/2 ML VIAL IVP PRN (13:33)
--- NOTE | 2018-05-29 13:36 | P.DS ---
Providers Date of admission: 05/28/18 10:53 Attending physician: Dago Bull MD Consults: 05/28/18 10:49 Consult Physician Urgent Consulting Provider: Garret Sanz Consult Reason/Comments: Chest pain Do you want consulting provider notified?: Yes Primary care physician: Trip Patel [facility] Course: This is a 57-year-old male patient of Dr. Patel in Dr. 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 Patient gives history of sudden onset of chest pain that has been ongoing on and off for the past couple of days. He states it somewhat similar to the pain he had with his myocardial infarction 4 years ago. It has been lasting for longer periods of time and up to 10 minutes. It is a burning type sensation in the middle of his chest and upper arms. Patient came into [facility] emergency center for evaluation. Initial troponin was negative. EKG was sinus bradycardia with no acute ST changes. Chest x-ray showed borderline heart size. Mild peribronchial cuffing could reflect bronchitis or asthma. No acute process. He was started on a full strength aspirin, resumed on his home medications and placed on the observation unit with cardiology consult. 05/29 patient examined bedside. Denies any chest pain but does have some tingling burning sensation in the substernal area. Denies any shortness of breath. Troponin 3 negative EKG with no ST or T-wave changes Patient underwent cardiac cath today with patent stent an dno occlusion. Dioscharge diagnosis #1 Atypical chest pain, ACS ruled out coronary artery disease. #2 history of coronary artery disease #3 type 2 diabetes controlled #4 hypertension #5 history of depression #6 diabetic neuropathy CC a copy of discharge to Dr. Edward Patient Condition at Discharge: Stable Plan - Discharge Summary Discharge Rx Participant: No New Discharge Prescriptions: Continue Metoprolol Tartrate [Lopressor] 25 mg PO BID Clopidogrel [Plavix] 75 mg PO DAILY Aspirin EC [Ecotrin Low Dose] 81 mg PO DAILY glipiZIDE [Glucotrol] 5 mg PO AC-BID Lisinopril [Zestril] 20 mg PO BID Hydrochlorothiazide 50 mg PO DAILY Calcium Carbonate [Calcium] 600 mg PO DAILY Ibuprofen [Motrin] 800 mg PO Q6H PRN PRN Reason: Pain Escitalopram [Lexapro] 10 mg PO DAILY metFORMIN HCL 1,000 mg PO TID Pregabalin [Lyrica] 75 mg PO TID Isosorbide Mononitrate ER [Imdur] 30 mg PO DAILY Discharge Medication List Aspirin EC [Ecotrin Low Dose] 81 mg PO DAILY 05/28/18 [History] Calcium Carbonate [Calcium] 600 mg PO DAILY 05/28/18 [History] Clopidogrel [Plavix] 75 mg PO DAILY 05/28/18 [History] Escitalopram [Lexapro] 10 mg PO DAILY 05/28/18 [History] Hydrochlorothiazide 50 mg PO DAILY 05/28/18 [History] Ibuprofen [Motrin] 800 mg PO Q6H PRN 05/28/18 [History] Isosorbide Mononitrate ER [Imdur] 30 mg PO DAILY 05/28/18 [History] Lisinopril [Zestril] 20 mg PO BID 05/28/18 [History] Metoprolol Tartrate [Lopressor] 25 mg PO BID 05/28/18 [History] Pregabalin [Lyrica] 75 mg PO TID 05/28/18 [History] glipiZIDE [Glucotrol] 5 mg PO AC-BID 05/28/18 [History] metFORMIN HCL 1,000 mg PO TID 05/28/18 [History] Follow up Appointment(s)/Referral(s): Arie Kohler MD [STAFF PHYSICIAN] - 1 Week Trip Patel DO [Primary Care Provider] - 1-2 days Discharge Disposition: HOME SELF-CARE
[2018-05-29 13:50] VITALS: TEMP 97.8
--- NOTE | 2018-05-29 15:39 | CC ---
CARDIAC CATHETERIZATION REPORT Mr. Trent is a 57-year-old male with known history of hypertension, hyperlipidemia, prior history of coronary artery disease and stenting of the left circumflex in 2013, who presented with symptoms of chest discomfort. His cardiac enzymes revealed no evidence of acute myocardial infarction. He was evaluated by Dr. Borja and recommendation made regarding cardiac catheterization. The procedures, risks and complication were discussed with the patient who is in full understanding and agreement. 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 Using Xylocaine anesthesia and Seldinger technique, a 6-Jordanian sheath was introduced in the right radial artery. Selective right and left angiography performed using 5-Jordanian 3.5 bend right and left Radha catheter, multiple views of the coronary artery including hemiaxial views obtained. Following that, 5-Jordanian tight pigtail catheter was introduced in the left ventricle and a 30 degree LUIS view of the left ventricle was obtained. Following that, catheter and sheath were removed. Hemostasis was obtained with deployment of a TR band. There was no immediate complication. Patient is returned to his room in stable condition. Of note, the patient received 5000 units of intravenous heparin as well as intra-arterial verapamil. FINDINGS: LEFT MAIN: This is a large-sized vessel trifurcating into left anterior descending artery, left circumflex and ramus intermedius. Left main coronary artery has 10%-20% plaque distally. LEFT ANTERIOR DESCENDING ARTERY: This is a large-sized vessel reaching toward the apex with a wraparound apex segment, giving rise to a moderately sized diagonal branch in mid segment. The vessel is calcified predominantly in the mid segment. It has diffuse intimal disease throughout its course with area stenosis up to 40%. LEFT CIRCUMFLEX: This is a small size vessel, nondominant, that has no evidence of high-grade stenosis. RAMUS INTERMEDIUS: This is a large branching vessel reaching toward the apical lateral wall. The stented segment is patent. In the stent, there is a jailed branch that has an 80% stenosis. The rest of the vessel has no high-grade stenosis. RIGHT CORONARY ARTERY: This is a large dominant vessel, bifurcating into PDA, posterolateral single branches. The right PDA reaches toward the inferoapical wall. The right coronary artery proximally has a 40% to 50% plaque. The rest of the vessel has no high-grade stenosis. LEFT VENTRICULOGRAM: Left ventriculogram was performed in 30 degree LUIS view and revealed normal left ventricular size and systolic function, ejection fraction is 55%. There was no significant mitral regurgitation. HEMODYNAMICS: There was no gradient across the aortic valve, the left ventricular end-diastolic pressure was 10 mmHg. CONCLUSION: 1. Mild to moderate triple-vessel coronary artery disease with significant disease in a jailed branch off the ramus intermedius. 2. Preserved left ventricular size and systolic function. RECOMMENDATION: There is no progression of disease compared with the images obtained in 2014. I would recommend continue medical therapy with aggressive risk modification that has been initiated. Those findings and recommendation were discussed with the patient and his family who are in full understanding and agreement. Duration of procedure is 17 minutes. MMKATELYNNL / VIOLAN: [id number] /
[2018-05-29 15:43] VITALS: BP 151/95; PULSE 57
[2018-05-29 17:14] LABS: Glucose,Whole Blood 213 mg/dL (75-99)
--- NOTE | 2018-05-29 23:58 | P.HPIM ---
History of Present Illness H&P Date: 05/28/18 Chief Complaint: Chest pain This is a 57-year-old male patient of Dr. Patel in Dr. 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 Patient gives history of sudden onset of chest pain that has been ongoing on and off for the past couple of days. He states it somewhat similar to the pain he had with his myocardial infarction 4 years ago. It has been lasting for longer periods of time and up to 10 minutes. It is a burning type sensation in the middle of his chest and upper arms. Patient came into [facility] emergency center for evaluation. Initial troponin was negative. EKG was sinus bradycardia with no acute ST changes. Chest x-ray showed borderline heart size. Mild peribronchial cuffing could reflect bronchitis or asthma. No acute process. He was started on a full strength aspirin, resumed on his home medications and placed on the observation unit with cardiology consult. Review of Systems All systems: negative Constitutional: Denies chills, Denies fever, Denies poor appetite, Denies weakness, Denies weight loss Eyes: denies blurred vision, denies pain Ears, nose, mouth and throat: Denies headache, Denies sore throat, Denies vertigo Cardiovascular: Reports chest pain, Denies decreased exercise tolerance, Denies dyspnea on exertion, Denies edema, Denies leg edema, Denies lightheadedness, Denies shortness of breath, Denies syncope Respiratory: Denies cough Gastrointestinal: Denies abdominal pain, Denies diarrhea, Denies nausea, Denies vomiting Musculoskeletal: Denies myalgias Integumentary: Denies pruritus, Denies rash Neurological: Denies numbness, Denies weakness Psychiatric: Denies anxiety, Denies depression Endocrine: Denies fatigue, Denies weight change Past Medical History Past Medical History: Diabetes Mellitus, Myocardial Infarction ([place]), Sleep Apnea /CPAP/BIPAP Additional Past Medical History / Comment(s): phlebitis left lower extremity, diabetic neuropathy involving the feet and hands, obstructive sleep apnea on CPAP. History of Any Multi-Drug Resistant Organisms: None Reported Past Surgical History: Heart Catheterization With Stent, Hernia Repair Additional Past Surgical History / Comment(s): tumor removed from left adrenal gland, left adrenal gland removed, stomach tumor removed Past Psychological History: Depression Smoking Status: Former smoker Past Alcohol Use History: Occasional Additional Past Alcohol Use History / Comment(s): Patient smoked as a teenager only. Past Drug Use History: None Reported - Past Family History Mother Additional Family Medical History / Comment(s): Mother is alive at age 87 with history of hypertension. Grandmother had history of myocardial infarction and diabetes. Brother(s) Additional Family Medical History / Comment(s): Brothers have history of hypertension. Patient has 1 sister with no major medical problems. Patient has 2 children with no major medical problems. Father Family Medical History: Cancer Additional Family Medical History / Comment(s): lung cancer. Medications and Allergies Home Medications Medication Instructions Recorded Confirmed Type Aspirin EC [Ecotrin Low Dose] 81 mg PO DAILY 05/28/18 05/28/18 History Calcium Carbonate [Calcium] 600 mg PO DAILY 05/28/18 05/28/18 History Clopidogrel [Plavix] 75 mg PO DAILY 05/28/18 05/28/18 History Escitalopram [Lexapro] 10 mg PO DAILY 05/28/18 05/28/18 History Hydrochlorothiazide 50 mg PO DAILY 05/28/18 05/28/18 History Ibuprofen [Motrin] 800 mg PO Q6H PRN 05/28/18 05/28/18 History Isosorbide Mononitrate ER [Imdur] 30 mg PO DAILY 05/28/18 05/28/18 History Lisinopril [Zestril] 20 mg PO BID 05/28/18 05/28/18 History Metoprolol Tartrate [Lopressor] 25 mg PO BID 05/28/18 05/28/18 History Pregabalin [Lyrica] 75 mg PO TID 05/28/18 05/28/18 History glipiZIDE [Glucotrol] 5 mg PO AC-BID 05/28/18 05/28/18 History metFORMIN HCL 1,000 mg PO TID 05/28/18 05/28/18 History Allergies Allergy/AdvReac Type Severity Reaction Status Date / Time perflutren [From Definity] AdvReac Unknown Verified 05/28/18 09:47 Physical Exam Vitals: Vital Signs Temp Pulse Resp BP Pulse Ox 05/28/18 09:10 98 F 60 18 180/104 96 Intake and Output 05/27/18 05/28/18 05/28/18 22:59 06:59 14:59 Other: Weight 122.47 kg Gen: This is a 57-year-old obese male. He is sitting on the ER stretcher and appears to be comfortable and in no acute distress. HEENT: Head is atraumatic, normocephalic. Pupils equal, round. Sclerae is anicteric. NECK: Supple. No JVD. No lymphadenopathy. No thyromegaly. LUNGS: Clear to auscultation. No wheezes or rhonchi. No intercostal retractions. HEART: Regular rate and rhythm. No murmur. ABDOMEN: Soft. Bowel sounds are present. No masses. No tenderness. EXTREMITIES: No pedal edema. No calf tenderness. Dorsalis pedis +2 bilaterally. NEUROLOGICAL: Patient is awake, alert and oriented x3. Cranial nerves 2 through 12 are grossly intact. Results CBC & Chem 7: 05/28/18 10:10 05/28/18 10:10 Thrombosis Risk Factor Assmnt - DVT/VTE Prophylaxis DVT/VTE Prophylaxis: Pharmacologic Prophylaxis ordered Assessment and Plan Plan: #1 acute chest pain likely secondary to unstable angina with history of coronary artery disease. Echocardiogram ordered. EKG with no evidence of ischemia, no ST-T wave changes, troponin 3 negative. Plan for cardiac cath today. Continue heparin drip #2 history of coronary artery disease continue patient on aspirin 81 mg Plavix 75 mg, metoprolol 25 mg twice a day, Imdur 30 mg by mouth daily #3 type 2 diabetes controlled with metformin and glipizide. Hold metformin and glipizide to to contract induced nephropathy. Continue insulin sliding scale #4 hypertension continue lisinopril 20 mg twice a day, hydrochlorothiazide 50 mg by mouth daily, metoprolol 25 mg by mouth twice a day #5 history of depression continue Lexapro 10 mg by mouth daily #6 diabetic neuropathy continue Lyrica 75 mg 3 times a day #7 DVT prophylaxis with heparin drip CODE STATUS full code Patient will be placed on the observation unit. Discharge plan: return home Impression and plan of care have been directed as dictated by the signing physician. Valeria Coats nurse practitioner acting as scribe for signing physician.
[2018-05-30] MEDS ORDERED: ASPIRIN 81 MG PO SCH (09:00)
== END 2018-05-29 19:10 | disposition home or self-care (01) ==
LOC: EC 09:07 → 3OBS 10:53
PROVIDERS: ADMIT Internal Medicine; ATTEND Internal Medicine
DX: R07.89 Other chest pain (principal); R06.02 Shortness of breath; R20.2 Paresthesia of skin; R61 Generalized hyperhidrosis; I25.2 Old myocardial infarction; Z95.5 Presence of coronary angioplasty implant and graft; G47.33 Obstructive sleep apnea (adult) (pediatric); Z99.89 Dependence on other enabling machines and devices; I25.10 Atherosclerotic heart disease of native coronary artery without angina pectoris; I10 Essential (primary) hypertension; F32.9 Major depressive disorder, single episode, unspecified; M19.90 Unspecified osteoarthritis, unspecified site; G89.29 Other chronic pain; M54.9 Dorsalgia, unspecified; M51.27 Other intervertebral disc displacement, lumbosacral region; M48.00 Spinal stenosis, site unspecified; E78.5 Hyperlipidemia, unspecified; E11.42 Type 2 diabetes mellitus with diabetic polyneuropathy; Z79.02 Long term (current) use of antithrombotics/antiplatelets; Z79.899 Other long term (current) drug therapy; Z79.82 Long term (current) use of aspirin; Z79.84 Long term (current) use of oral hypoglycemic drugs; Z88.8 Allergy status to other drugs, medicaments and biological substances; Z86.72 Personal history of thrombophlebitis; Z87.891 Personal history of nicotine dependence; Z86.73 Personal history of transient ischemic attack (TIA), and cerebral infarction without residual deficits; E66.9 Obesity, unspecified; Z68.36 Body mass index [BMI] 36.0-36.9, adult; Z80.1 Family history of malignant neoplasm of trachea, bronchus and lung; Z82.5 Family history of asthma and other chronic lower respiratory diseases
CPT/HCPCS: 99291 ×2; 96365; 96366; 96376 ×2; 36415; 93005; 93306; 93458; 85347; 83880; 80061; 80053; 82550; 82553; 83735; 84484; 85025; 85610; 85730 ×2; 83036; 71046; G0378 ×2; C1894; C1769; J2250; J1644 ×5; J2405; J3010; J2001; Q9967

== ENCOUNTER → 2018-06-02 | Outpatient (CLI) | payer OTHER ==
--- NOTE | 2018-06-02 10:32 | XR ---
Lumbosacral spine HISTORY: Chronic low back pain 5 views of the lumbosacral spine Lumbar vertebral bodies show preserved height and alignment, bone mineralization. Loss of disc height present L5-S1 with associated spondylosis. Sclerosis present in the posterior elements. No evident s pondylolysis. Surgical clips present in the left upper quadrant. Vascular calcifications noted in the aortoiliac distribution. IMPRESSION: Degenerative disc disease, facet arthropathy.
== END | disposition home or self-care (01) ==
LOC: RADXRMAIN 09:13
PROVIDERS: ATTEND Family Medicine
DX: M51.37 Other intervertebral disc degeneration, lumbosacral region (principal); M46.87 Other specified inflammatory spondylopathies, lumbosacral region
CPT/HCPCS: 72110

== ENCOUNTER → 2018-08-13 | Outpatient (CLI) | payer OTHER ==
[2018-08-13 18:15] LABS: Hemoglobin A1C 7.7 % (4.0-6.0)
[2018-08-13 19:11] LABS: Albumin 4.1 g/dL (3.80-4.90); Albumin/Globulin Ratio 1.95 (1.20-2.10); Anion Gap 6.6 mmol/L (4.00-12.00); Calcium 8.8 mg/dL (8.7-10.3); Carbon Dioxide 32.4 mmol/L (21.6-31.8); Globulin 2.1 g/dL (2.1-3.7); Potassium 3.2 mmol/L (3.5-5.5); Total Bilirubin 0.6 mg/dL (0.3-1.2); Total Protein 6.2 g/dL (6.2-8.2)
== END ==
LOC: LABWHC1 10:35
PROVIDERS: ATTEND Internal Medicine
DX: E11.65 Type 2 diabetes mellitus with hyperglycemia (principal)
CPT/HCPCS: 36415; 80053; 82043; 82570; 83036

== ENCOUNTER → 2018-11-17 | Outpatient (CLI) | payer OTHER ==
[2018-11-17 18:51] LABS: LDL Cholesterol,Calculated 49.6 mg/dL (0.0-131.0); VLDL Calculation 21.4 mg/dL (5.00-40.00)
[2018-11-17 21:12] LABS: Hemoglobin A1C 8.6 % (4.0-6.0)
== END | disposition home or self-care (01) ==
LOC: LABWHC1 08:26
PROVIDERS: ATTEND Internal Medicine Interventional Cardiology
DX: E78.2 Mixed hyperlipidemia (principal); E11.65 Type 2 diabetes mellitus with hyperglycemia
CPT/HCPCS: 36415; 80061; 82043; 82570; 83036; 84450; 84460

== ENCOUNTER → 2018-12-02 | Outpatient (CLI) | payer OTHER ==
--- NOTE | 2018-12-02 19:28 | PN ---
PROGRESS NOTE This is a 58-year-old male patient who is coming in for an annual check regarding his KWAN treatment. The patient has severe KWAN with an AHI of 54. The patient is using a Mirage FX nose mask. On today's evaluation, his CPAP machine is set at a pressure of 12 cm of water. He continues to benefit and to be treated effectively with CPAP therapy. The patient is waking up alert and refreshed during the day. His sleep quality remains good and his sleep is not fragmented. He wakes up refreshed during the day. The patient's baseline AHI is 54. He denies having any chest pain, shortness of breath or any other upper respiratory complaints or cardiovascular complaints overnight. Based on the compliance data that was noted on his CPAP machine, the patient has been utilizing his CPAP on an average of 7.3 hours per night. His CPAP use for more than 4 hours is 24/. Leak factor 60 L/minute and his AHI is down to 0.8 while on treatment. He has lost weight. He used to weigh 267 pounds and currently is down to 257. REVIEW OF SYSTEMS: Twelve-point review of systems was done. Positive findings were all mentioned above. It is positive for weight loss. No fever or chills. He is able to use the nose mask, which is a Mirage FX. No leaks around the mask. He would like to explore other options, knowing that the forehead piece of the mask is making him uncomfortable. No nasal congestion. No aerophagia. No chest pain, shortness of breath, heartburn overnight. No nausea, vomiting or abdominal pain. No hypersomnia or sleepiness. No tiredness. No history of any motor vehicle accident because of feeling drowsy or sleepy. No falls. PHYSICAL EXAMINATION: BP is 136/80, pulse 76, respirations 16, temperature 98.4, saturation 94% on room air. Weight is 257. Height is 5 feet 11 inches, BMI 35.8. GENERAL APPEARANCE: Calm, comfortable. Head is atraumatic, normocephalic. NECK: Supple. No JVD. No goiter or neck masses. LUNGS: Diminished. Otherwise clear. Heart sounds are regular rate and rhythm. Normal S1, S2. No S3, S4. No murmurs. ABDOMEN: Soft, nontender. No organomegaly. EXTREMITIES: No edema. No cyanosis or clubbing. NEUROLOGIC: Alert and oriented x3. There is no focal neurological deficit. PSYCHIATRIC: Negative for anxiety or depression. IMPRESSION: 1. Severe obstructive sleep apnea with an apnea/hypopnea index of 54, currently on CPAP at a pressure of 12 cm of water. Treatment continues to be successful. The patient is benefitting from the treatment and he has no new complaints. He is exploring different mask options. 2. Hypersomnia, recovered. Current Quinn score is down to 2. 3. Obesity with interval weight loss. Current BMI is down to 35.8 and weight is down to 257. 4. Bruxism, currently inactive and stable. 5. Depression, currently inactive and stable. 6. History of cerebrovascular accident. 7. Coronary artery disease with previous myocardial infarction. 8. Hyperlipidemia. 9. Hypertension. PLAN: 1. Encourage weight loss. 2. Offer this patient an AirFit N20 medium-sized full-face mask. This will be replacement for his Mirage FX nose mask. 3. Treatment is successful. No need for any pressure adjustments. Continue using the same CPAP machine. Supplies were renewed. See me back in a year's time in followup, earlier if needed. His current Quinn score is 2 and his treatment continues to be successful. MMODL / IJN: [id number] /
== END ==
LOC: SLEEP 15:36
PROVIDERS: ATTEND Internal Medicine Critical Care Medicine
DX: G47.33 Obstructive sleep apnea (adult) (pediatric) (principal); E66.9 Obesity, unspecified; G47.63 Sleep related bruxism; F32.9 Major depressive disorder, single episode, unspecified; I25.2 Old myocardial infarction; I25.10 Atherosclerotic heart disease of native coronary artery without angina pectoris; E78.5 Hyperlipidemia, unspecified; I10 Essential (primary) hypertension; Z86.73 Personal history of transient ischemic attack (TIA), and cerebral infarction without residual deficits; Z68.35 Body mass index [BMI] 35.0-35.9, adult; Z99.89 Dependence on other enabling machines and devices

== ENCOUNTER 2019-06-13 15:59 | Emergency (ER) | payer OTHER ==
[2019-06-13] MEDS ORDERED: DIPH,PERTUS(ACELL)TETVAC-LF 0.5 ML VIAL IM ONE (16:21)
--- NOTE | 2019-06-13 16:28 | ED ---
Animal Bite HPI - General Chief Complaint: Animal Bite Stated Complaint: Dog bite Time Seen by Provider: 06/13/19 16:06 Source: patient Mode of arrival: ambulatory Limitations: no limitations - History of Present Illness Initial Comments: Patient is a 58-year-old male presenting to the emergency Department with complaints of an aloe bite to his right jaw that happened last night. Patient states his dog got sprayed by a skunk and then later in the evening the patient went to fern picker his dog to move him and the dog reacted and bit him in the right jaw. The dog is apparently 7 years old and is up-to-date with all vaccines. Patient states he does not remember his last tetanus vaccine. Bleeding is controlled at this time. Patient states he has very minimal pain to the right jaw. Patient was at the vet today with the dog and they recommended him be evaluated. Patient denies fever, chills. No other complaints at this time. Upon arrival to ER, vital signs are stable. - Related Data Home Medications Medication Instructions Recorded Confirmed Aspirin EC [Ecotrin Low Dose] 81 mg PO DAILY 05/28/18 05/28/18 Calcium Carbonate [Calcium] 600 mg PO DAILY 05/28/18 05/28/18 Clopidogrel [Plavix] 75 mg PO DAILY 05/28/18 05/28/18 Escitalopram [Lexapro] 10 mg PO DAILY 05/28/18 05/28/18 Hydrochlorothiazide 50 mg PO DAILY 05/28/18 05/28/18 Ibuprofen [Motrin] 800 mg PO Q6H PRN 05/28/18 05/28/18 Isosorbide Mononitrate ER [Imdur] 30 mg PO DAILY 05/28/18 05/28/18 Lisinopril [Zestril] 20 mg PO BID 05/28/18 05/28/18 Metoprolol Tartrate [Lopressor] 25 mg PO BID 05/28/18 05/28/18 Pregabalin [Lyrica] 75 mg PO TID 05/28/18 05/28/18 glipiZIDE [Glucotrol] 5 mg PO AC-BID 05/28/18 05/28/18 metFORMIN HCL 1,000 mg PO TID 05/28/18 05/28/18 Previous Rx's Medication Instructions Recorded Amoxicillin/Potassium Clav 1 tab PO BID 7 Days #14 tab 06/13/19 [Augmentin 875-125 Tablet] Allergies Allergy/AdvReac Type Severity Reaction Status Date / Time perflutren [From Definity] AdvReac Unknown Verified 06/13/19 16:03 Review of Systems ROS Statement: Those systems with pertinent positive or pertinent negative responses have been documented in the HPI. ROS Other: All systems not noted in ROS Statement are negative. Past Medical History Past Medical History: Diabetes Mellitus, Myocardial Infarction ([place]), Sleep Apnea/CPAP/BIPAP Additional Past Medical History / Comment(s): phlebitis left lower extremity, diabetic neuropathy involving the feet and hands, obstructive sleep apnea on CPAP. Last Myocardial Infarction Date:: 2013 History of Any Multi-Drug Resistant Organisms: None Reported Past Surgical History: Heart Catheterization With Stent, Hernia Repair Additional Past Surgical History / Comment(s): tumor removed from left adrenal gland, left adrenal gland removed, stomach tumor removed Date of Last Stent Placement:: 2013 Past Psychological History: Depression Smoking Status: Former smoker Past Alcohol Use History: Occasional Past Drug Use History: None Reported - Past Family History Mother Family Medical History: COPD, Hypertension Additional Family Medical History / Comment(s): Mother is alive at age 87 with history of hypertension. Grandmother had history of myocardial infarction and diabetes. Brother(s) Additional Family Medical History / Comment(s): Brothers have history of hypertension. Patient has 1 sister with no major medical problems. Patient has 2 children with no major medical problems. Father Family Medical History: Cancer Additional Family Medical History / Comment(s): lung cancer. General Exam - General Exam Comments Initial Comments: GENERAL: Well-appearing, well-nourished and in no acute distress. HEAD: Atraumatic, normocephalic. EYES: Pupils equal round and reactive to light, extraocular movements intact, sclera anicteric, conjunctiva are normal. ENT: TMs normal, nares patent, oropharynx clear without exudates. Moist mucous membranes. NECK: Normal range of motion, supple without lymphadenopathy or JVD. LUNGS: Breath sounds clear to auscultation bilaterally and equal. No wheezes rales or rhonchi. HEART: Regular rate and rhythm without murmurs, rubs or gallops. ABDOMEN: Soft, nontender, normoactive bowel sounds. No guarding, no rebound. No masses appreciated. : Deferred EXTREMITIES: Normal range of motion, no pitting or edema. No clubbing or cyanosis. NEUROLOGICAL: Cranial nerves II through XII grossly intact. Normal speech, normal gait. PSYCH: Normal mood, normal affect. SKIN: Warm, Dry, normal turgor, no rashes. There is a 1cm superficial laceration to the right mid jaw area, no active bleeding. There is some yellowish discharge noted. No pain with palpation of the surrounding area. Patient has full jaw range of motion. Limitations: no limitations Course Vital Signs 06/13/19 16:01 Temperature 97.5 F L Pulse Rate 69 Respiratory 20 Rate Blood Pressure 149/85 O2 Sat by Pulse 99 Oximetry Medical Decision Making - Medical Decision Making Patient is a 4-year-old male presenting with a dog bite to the right jaw that happened yesterday. This is the patient's own dog, the dog is up-to-date with vaccines. On exam, patient has a superficial 1 cm laceration into the right mid jaw area. Patient has no pain with palpation of the surrounding area and has full jaw range of motion. The wound was clean and noted to have yellowish discharge from the area. There is no active bleeding at this time. Patient's tetanus vaccine was updated today. Patient will be started on Augmentin. Patient is stable for discharge at this time. Return parameters were discussed with the patient he verbalizes understanding. Case discussed with Dr. Vu. Disposition Clinical Impression: Dog bite of cheek Disposition: HOME SELF-CARE Condition: Stable Instructions (If sedation given, give patient instructions): Animal Bite (ED) Additional Instructions: Please return to the Emergency Department if symptoms worsen or any other concerns. Keep the wound cleaned. Take antibiotics as prescribed. Follow up with PCP as needed. Prescriptions: Amoxicillin/Potassium Clav [Augmentin 875-125 Tablet] 1 tab PO BID 7 Days #14 tab Is patient prescribed a controlled substance at d/c from ED?: No Referrals: Trip Patel DO [Primary Care Provider] - 1-2 days
[2019-06-13 17:09] VITALS: BP 150/87; PULSE 82; RESP 18; TEMP 98.2
== END 2019-06-13 17:09 | disposition home or self-care (01) ==
LOC: EC 15:59
DX: S01.451A Open bite of right cheek and temporomandibular area, initial encounter (principal); S01.81XA Laceration without foreign body of other part of head, initial encounter; E11.40 Type 2 diabetes mellitus with diabetic neuropathy, unspecified; F32.9 Major depressive disorder, single episode, unspecified; G47.33 Obstructive sleep apnea (adult) (pediatric); I25.2 Old myocardial infarction; Z23 Encounter for immunization; Z79.82 Long term (current) use of aspirin; Z79.84 Long term (current) use of oral hypoglycemic drugs; Z79.899 Other long term (current) drug therapy; Z99.89 Dependence on other enabling machines and devices; Z91.041 Radiographic dye allergy status; Z87.891 Personal history of nicotine dependence; W54.0XXA Bitten by dog, initial encounter
CPT/HCPCS: 90471; 90715; 99283

== ENCOUNTER → 2019-10-21 | Outpatient (CLI) | payer OTHER ==
--- NOTE | 2019-10-21 16:02 | US ---
EXAMINATION TYPE: US scrotum with doppler. Grayscale and color Doppler Duplex imaging performed of t he scrotum. DATE OF EXAM: 10/21/2019 COMPARISON: NONE CLINICAL HISTORY: Varicocele I86.1. EXAM MEASUREMENTS: TESTICLES: Right Testicle: 4.5 x 2.3 x 3.6 cm Left Testicle: 3.9 x 2.6 x 3.2 cm EPIDIDYMIS HEAD: Right Epididymis: 1.3 cm Left Epididymis: 1.0 cm Doppler performed to assess for testicular vascularity; bilateral color flow and waveforms are seen. Presence of hydrocele on left measuring 2.1 x 0.7 x1.7 Presence of varicocele on left. Grayscale images show homogenous and symmetric testicular echotexture. Distention of serpiginous vasc ulature the left hemiscrotum is noted. IMPRESSION: Findings suggest left-sided varicocele. There is a left hydrocele.
== END | disposition home or self-care (01) ==
LOC: RADUSMAIN 14:24
PROVIDERS: ATTEND Urology
DX: N43.3 Hydrocele, unspecified (principal)
CPT/HCPCS: 76870; 93975

== ENCOUNTER → 2020-10-31 | Outpatient (CLI) | payer MEDICARE ==
[2020-10-31 15:47] LABS: African American GFR (CKD) 117.2 (60.0-200.0); Albumin 4.4 g/dL (3.80-4.90); Anion Gap 6.3 mmol/L (4.00-12.00); BUN/Creat Ratio 14.29 Ratio (12.00-20.00); Calcium 9.4 mg/dL (8.7-10.3); Carbon Dioxide 33.7 mmol/L (21.6-31.8); Globulin 2.2 g/dL (1.6-3.3); Non-African American GFR(CKD) 101.1 (60.0-200.0); Potassium 4.2 mmol/L (3.5-5.5); Total Bilirubin 0.6 mg/dL (0.2-1.2); Total Protein 6.6 g/dL (6.2-8.2)
[2020-10-31 15:48] LABS: Chol/HDL Ratio 3.88; LDL Cholesterol,Calculated 46.6 mg/dL (0.0-131.0); VLDL Calculation 25.4 mg/dL (5.00-40.00)
[2020-10-31 17:48] LABS: Hemoglobin A1C 9.7 % (4.0-6.0)
== END | disposition home or self-care (01) ==
LOC: LABWHC1 09:16
PROVIDERS: ATTEND Internal Medicine Interventional Cardiology
DX: E11.9 Type 2 diabetes mellitus without complications (principal); E78.2 Mixed hyperlipidemia
CPT/HCPCS: 36415; 80053; 80061; 83036

== ENCOUNTER 2021-05-05 07:10 | Day surgery (SDC) | payer MEDICARE ==
[2021-05-02 15:44] VITALS: BMI 33.6
[~2021-05-05 07:10] MED LIST: LACTATED RINGERS 1,000 ML IV SCH; LIDOCAINE 1% (10MG/ML) FOR IV START INTRADERMA PRN
[2021-05-05 07:43] VITALS: RESP 17; TEMP 97
[2021-05-05 07:43] LABS: Glucose,Whole Blood 164 mg/dL (75-99)
[2021-05-05] MEDS ORDERED: PROPOFOL 10 MG/ML 20 ML VIAL IV ONE (08:26)
[2021-05-05] MEDS ORDERED: LIDOCAINE 1% INJ 10MG/ML (20 ML MDV) ONE (08:26)
--- NOTE | 2021-05-05 08:29 | P.HPIHPCON ---
History of Present Illness H&P Date: 05/05/21 58-year-old male presents for screening colonoscopy. Last colonoscopy was greater than 10 years ago and a polyp was found. He denies any blood in stool. Denies any family history of colon cancer. Consent for Procedure: I have explained the operation/procedure to the patient, including the risks, benefits, side effects, alternative therapies (including not receiving the proposed treatment or service), the likelihood of the patient achieving his/her goals, and potential recuperation problems for the procedure/sedation/analgesia, as well as any blood products, if indicated. I also explained to the patient the risks, benefits and side effects of the alternatives, as well as the risks related to not receiving the proposed procedure, care, treatment, or services. - Review of Systems All systems: negative Past Medical History Past Medical History: Diabetes Mellitus, Hyperlipidemia, Hypertension, Myocardial Infarction ([place]), Sleep Apnea/CPAP/BIPAP Additional Past Medical History / Comment(s): phlebitis left lower extremity, diabetic neuropathy involving the feet and hands, obstructive sleep apnea on CPAP. Last Myocardial Infarction Date:: 2013 History of Any Multi-Drug Resistant Organisms: None Reported Past Surgical History: Heart Catheterization With Stent, Hernia Repair Additional Past Surgical History / Comment(s): tumor removed from left adrenal gland, left adrenal gland removed, stomach tumor removed, COLONOSCOPY, EGD Past Anesthesia/Blood Transfusion Reactions: Postoperative Nausea & Vomiting (PONV) Date of Last Stent Placement:: 2013 Smoking Status: Former smoker - Past Family History Mother Family Medical History: COPD, Hypertension Additional Family Medical History / Comment(s): Mother is alive at age 87 with history of hypertension. Grandmother had history of myocardial infarction and diabetes. Brother(s) Additional Family Medical History / Comment(s): Brothers have history of hypertension. Patient has 1 sister with no major medical problems. Patient has 2 children with no major medical problems. Father Family Medical History: Cancer Additional Family Medical History / Comment(s): lung cancer. Medications and Allergies Home Medications Medication Instructions Recorded Confirmed Type Clopidogrel [Plavix] 75 mg PO DAILY 05/28/18 05/02/21 History Escitalopram [Lexapro] 10 mg PO DAILY 05/28/18 05/02/21 History Isosorbide Mononitrate ER [Imdur] 30 mg PO DAILY 05/28/18 05/02/21 History hydroCHLOROthiazide 50 mg PO DAILY 05/28/18 05/02/21 History lisinopriL [Zestril] 20 mg PO BID 05/28/18 05/02/21 History metFORMIN HCL [Glucophage] 1,000 mg PO BID 05/28/18 05/02/21 History Atorvastatin [Lipitor] 80 mg PO DAILY 05/02/21 05/02/21 History Metoprolol Tartrate [Lopressor] 50 mg PO BID 05/02/21 05/02/21 History Semaglutide [Ozempic] 0.5 mg SQ FR 05/02/21 05/05/21 History glipiZIDE [Glucotrol] 10 mg PO DAILY 05/02/21 05/02/21 History hydrALAZINE HCL 50 mg PO BID 05/02/21 05/02/21 History Allergies Allergy/AdvReac Type Severity Reaction Status Date / Time perflutren [From [employer]] AdvReac PATIENT Verified 05/05/21 07:23 STATES HE HAD TEMPORARY PARALYSIS Surgical - Exam Osteopathic Statement: *. No significant issues noted on an osteopathic structural exam other than those noted in the History and Physical/Consult. Vital Signs Temp Resp BP Pulse Ox 97.0 F L 17 182/99 97 05/05/21 07:42 05/05/21 07:42 05/05/21 07:42 05/05/21 07:42 - General no distress - Eyes normal ocular movement - Neck trachea midline - Respiratory normal respiratory effort - Abdomen Abdomen: soft, non tender - Psychiatric oriented to time, oriented to person, oriented to place Results - Labs Abnormal Lab Results - Last 24 Hours (Table) 05/05/21 Range/Units 07:39 POC Glucose (mg/dL) 164 H (75-99) mg/dL Assessment and Plan Plan: Plan is for screening colonoscopy. Risks, benefits and alternatives were provided to the patient. Consent was given. Further recommendations after procedure.
--- NOTE | 2021-05-05 08:55 | P.PCN ---
Date of Procedure: 05/05/21 Preoperative Diagnosis: Screening Postoperative Diagnosis: Cecal polyp, rectal polyp Procedure(s) Performed: Colonoscopy with hot snare polypectomy Anesthesia: MAC Surgeon: Fior Williamson Pathology: other (Cecal polyp, rectal polyp) Condition: stable Disposition: same day Indications for Procedure: 60-year-old male presents for screening colonoscopy. His last endoscopy was greater than 10 years ago. Denies any blood in his stool. Denies any family history of colon cancer. Operative Findings: Cecal polyp Rectal polyp Description of Procedure: The patient was brought into the endoscopy suite and placed in left lateral decubitus position. Adequate sedation was achieved using conscious sedation. A digital rectal exam was performed and mild internal hemorrhoids were palpated. An endoscope was then placed in the rectum and advanced to the cecum as identified by landmarks including the appendiceal orifice and the ileocecal valve. The prep was good. The colonoscope was then slowly withdrawn, examining for any mucosal abnormalities. The cecum, ascending, transverse, descending and sigmoid colon were visualized adequately. Cecal polyp was noted. This was removed with hot snare polypectomy. Diverticulosis was also noted scattered throughout the sigmoid colon. A rectal polyp was also noted and this was removed with hot snare polypectomy. Hemostasis was noted to be maintained. Retroflexion was performed in the rectum and internal hemorrhoids were visible. Excess air was removed, the colonoscope withdrawn and the procedure terminated. The patient was then transferred to the recovery unit in stable condition. Repeat colonoscopy should be performed in 3 years. I would recommend that the patient holds his antiplatelet medication for 2 additional days.
[2021-05-05 08:56] VITALS: BP 166/98; PULSE 64
== END 2021-05-05 09:37 | disposition home or self-care (01) ==
LOC: ORWHC2ENDO 07:10
PROVIDERS: ATTEND Surgery
DX: Z12.11 Encounter for screening for malignant neoplasm of colon (principal); D12.0 Benign neoplasm of cecum; K62.1 Rectal polyp; E11.9 Type 2 diabetes mellitus without complications; G47.33 Obstructive sleep apnea (adult) (pediatric); I25.2 Old myocardial infarction; E78.5 Hyperlipidemia, unspecified; I10 Essential (primary) hypertension; Z95.828 Presence of other vascular implants and grafts
CPT/HCPCS: 45385; 88305; J2001; J2704

== ENCOUNTER → 2021-07-06 | Outpatient (CLI) | payer MEDICARE ==
[2021-07-06 14:57] LABS: Albumin 4.1 g/dL (3.8-4.9); Albumin/Globulin Ratio 1.78 (1.60-3.17); Anion Gap 13.2 mmol/L (4.00-12.00); BUN/Creat Ratio 14.88 Ratio (12.00-20.00); Blood Urea Nitrogen 11.9 mg/dL (9.0-27.0); Calcium 9.1 mg/dL (8.7-10.3); Carbon Dioxide 25.8 mmol/L (21.6-31.8); Chol/HDL Ratio 2.79 Ratio; Globulin 2.3 g/dL (1.6-3.3); LDL Cholesterol,Calculated 51.4 mg/dL (0.0-131.0); Non-African American GFR(CKD) 95.7 (60.0-200.0); Total Bilirubin 0.4 mg/dL (0.30-1.20); Total Protein 6.4 g/dL (6.2-8.2); Triglycerides 82.9 mg/dL (0.00-149.00); VLDL Calculation 16.58 mg/dL (5.00-40.00)
== END | disposition home or self-care (01) ==
LOC: LABWHC1 07:43
PROVIDERS: ATTEND Internal Medicine Interventional Cardiology
DX: E78.2 Mixed hyperlipidemia (principal)
CPT/HCPCS: 36415; 80053; 80061

== ENCOUNTER 2021-07-20 07:28 | Day surgery (SDC) | payer MEDICARE ==
[2021-07-18 12:19] VITALS: BMI 33.2
[~2021-07-20 07:28] MED LIST changes: +ALPRAZolam 0.25 MG TAB PO PRN; +ALPRAZolam 0.5 MG TAB PO PRN; +ASPIRIN 325 MG TAB PO ONE; +ATORVASTATIN 80 MG TAB PO STA; -LACTATED RINGERS 1,000 ML IV SCH; -LIDOCAINE 1% (10MG/ML) FOR IV START INTRADERMA PRN; +NITROGLYCERIN SL TABS 0.4 MG TAB SUBLINGUAL PRN; +SODIUM CHLORIDE 0.9% 1,000 ML in EMPTY BAG 1 BAG IV SCH
[2021-07-20 08:03] LABS: Glucose,Whole Blood 177 mg/dL (75-99)
[2021-07-20 08:10] VITALS: TEMP 98.3
[2021-07-20 08:43] LABS: Basophils # (A) 0.1 k/uL (0-0.2); Basophils % (A) 1 %; Eosinophils # (A) 0.2 k/uL (0-0.7); Eosinophils % (A) 3 %; HCT 41.2 % (39.0-53.0); HGB 14.5 gm/dL (13.0-17.5); Lymphocytes # (A) 1.9 k/uL (1.0-4.8); Lymphocytes % (A) 28 %; MCH 30.8 pg (25.0-35.0); MCHC 35.2 g/dL (31.0-37.0); MCV 87.6 fL (80.0-100.0); Mean Platelet Volume 7.6; Monocytes # (A) 0.3 k/uL (0-1.0); Monocytes % (A) 5 %; Neutrophils # (A) 4.2 k/uL (1.3-7.7); Neutrophils % (A) 61 %; Platelet Count 240 k/uL (150-450); RDW 13.6 % (11.5-15.5); WBC 6.8 k/uL (3.8-10.6)
[2021-07-20] MEDS ORDERED: LIDOCAINE 1% INJ 10MG/ML (20 ML MDV) ONE (08:58)
[2021-07-20] MEDS ORDERED: VERAPAMIL 2.5 MG/ML 2 ML AMP ONE (08:58)
[2021-07-20] MEDS ORDERED: HEPARIN SODIUM 1,000 UN/ML (10ML VL) ONE (09:02)
[2021-07-20] MEDS ORDERED: fentaNYL (PF) 50 MCG/ML 2 ML AMP ONE (09:02)
[2021-07-20] MEDS ORDERED: fentaNYL (PF) 50 MCG/ML 2 ML AMP IVP ONE (09:18)
[2021-07-20] MEDS ORDERED: LIDOCAINE 1% INJ 10MG/ML (20 ML MDV) SQ ONE (09:22)
[2021-07-20] MEDS ORDERED: VERAPAMIL SYRINGE (5 MG/10 ML) INTRAARTER ONE (09:25)
[2021-07-20] MEDS ORDERED: HEPARIN SODIUM 1,000 UN/ML (10ML VL) IV ONE (09:27)
[2021-07-20] MEDS ORDERED: IOPAMIDOL-370 125ML BTL INJ ONE (09:34)
[2021-07-20] MEDS ORDERED: RX INFO: IV CONTRAST WAS GIVEN 1 EACH MISC MISCELLANE PRN (09:50)
[2021-07-20] MEDS ORDERED: SODIUM CHLORIDE 0.9% 1,000 ML IV SCH (10:00)
[2021-07-20 11:08] VITALS: RESP 16
[2021-07-20] MEDS ORDERED: ACETAMINOPHEN TAB 325 MG TAB ONE (12:12)
[2021-07-20] MEDS ORDERED: ACETAMINOPHEN TAB 325 MG TAB PO ONE (12:14)
[2021-07-20 13:09] VITALS: BP 122/69; PULSE 60
--- NOTE | 2021-07-20 13:11 | CC ---
CARDIAC CATHETERIZATION REPORT DATE OF SERVICE: 07/20/2021 Mr. Trent is a 61-year-old male with a history of hypertension, hyperlipidemia, diabetes mellitus and coronary artery disease who is scheduled to undergo total hip arthroplasty. He underwent myocardial perfusion imaging that revealed evidence of inducible ischemia involving the anterolateral wall. In view of that, recommendation was made regarding cardiac catheterization. The procedure as well as its risks and complications were discussed with the patient, who was in full understanding and agreement. PROCEDURE DESCRIPTION: The patient was brought to medical lab technician in the fasting, semi-sedated state after receiving fentanyl and Benadryl and achieving a moderate conscious sedated state. Using Xylocaine anesthesia and Seldinger technique, a 6-Sinhala sheath was introduced in the right radial artery. Selective right and left coronary angiography was performed using 5-Sinhala 3-1/2 bend right and left Radha catheters. Multiple views were taken of the arteries, including hemiaxial views. The right Radha catheter was used to cross the aortic valve. The left ventricular end-diastolic pressure was calculated. Following that, catheter and sheaths were removed. Hemostasis was obtained with deployment of a TR band. There was no immediate complication. Patient was returned to his room in stable condition. Of note, the patient received 5000 units of intravenous heparin as well as intra-arterial verapamil. FINDINGS: LEFT MAIN: This is a large-sized vessel trifurcating into left circumflex, left anterior descending artery and ramus intermedius. Left main coronary artery has 10% to 20% plaque distally without any evidence of high-grade stenosis. LEFT ANTERIOR DESCENDING CORONARY ARTERY: This is a large-sized vessel reaching toward the apex with a wrap around the apex segment giving rise to a moderately sized diagonal branch in the mid segment. The left anterior descending artery throughout its course has diffuse intimal disease of 20% to 30% without any evidence of high-grade stenosis. LEFT CIRCUMFLEX: This is a nondominant vessel, small in caliber, giving rise to one obtuse marginal branch. The left circumflex has no evidence of high-grade stenosis. RAMUS INTERMEDIUS: This is a large-sized vessel that has a bifurcating branch. The stented segment is patent. The superior branch has an 80% stenosis at the takeoff without progression compared to 2018. RIGHT CORONARY ARTERY: This is a large dominant vessel bifurcating distally into PDA and posterolateral segment and branches. The proximal right coronary artery has a 40% to 50% plaque. The rest of the vessel has no evidence of high-grade stenosis, with mild intimal disease. The vessel is large in caliber. LEFT VENTRICULOGRAM: Left ventriculogram was not performed. HEMODYNAMICS: There was no gradient across the aortic valve. The left ventricular end- diastolic pressure was 14 to 16 mmHg. CONCLUSION: 1. No evidence of restenosis in the stented segment of the ramus intermedius, with significant stenosis in the superior branch of the same vessel, unchanged compared to 2018. 2. Mild to moderate triple-vessel coronary artery disease with no progression of disease. RECOMMENDATIONS: In view of findings and anatomy, I have recommended continued medical therapy. The rationale behind those finding and recommendations were discussed with the patient, who is in full understanding and agreement. Patient should be stable to proceed with his surgical intervention. Duration of sedation was 13 minutes. CHARANJIT / GABE: [id number] /
[2021-07-20] MEDS ORDERED: hydrALAZINE HCL 50 MG TAB PO SCH (21:00)
[2021-07-20] MEDS ORDERED: METOPROLOL TARTRATE 50 MG TAB PO SCH (21:00)
[2021-07-20] MEDS ORDERED: lisinopriL 20 MG TAB PO SCH (21:00)
[2021-07-21] MEDS ORDERED: glipiZIDE 10 MG TAB PO SCH (07:30)
[2021-07-21] MEDS ORDERED: Semaglutide [Ozempic] 1 MG/0.75 ML Pen.Injctr SQ SCH (09:00)
[2021-07-21] MEDS ORDERED: ATORVASTATIN 80 MG TAB PO SCH (09:00)
[2021-07-21] MEDS ORDERED: ISOSORBIDE MONONITRATE ER 30 MG TAB.ER.24H PO SCH (09:00)
[2021-07-21] MEDS ORDERED: ESCITALOPRAM 10 MG TAB PO SCH (09:00)
[2021-07-21] MEDS ORDERED: ASPIRIN 81 MG PO SCH (09:00)
== END 2021-07-20 12:55 | disposition home or self-care (01) ==
LOC: CATHCVL 07:28
PROVIDERS: ATTEND Internal Medicine Interventional Cardiology
DX: I25.10 Atherosclerotic heart disease of native coronary artery without angina pectoris (principal); Z95.5 Presence of coronary angioplasty implant and graft; I10 Essential (primary) hypertension; E78.2 Mixed hyperlipidemia; Z20.822 Contact with and (suspected) exposure to COVID-19; R94.39 Abnormal result of other cardiovascular function study; E11.9 Type 2 diabetes mellitus without complications; E78.00 Pure hypercholesterolemia, unspecified; Z91.041 Radiographic dye allergy status; Z91.048 Other nonmedicinal substance allergy status; Z87.891 Personal history of nicotine dependence; Z79.02 Long term (current) use of antithrombotics/antiplatelets; Z79.82 Long term (current) use of aspirin; Z79.899 Other long term (current) drug therapy; Z79.1 Long term (current) use of non-steroidal anti-inflammatories (NSAID)
CPT/HCPCS: 93458; 85025; 87635; C1894; C1769; J2001; J3010; J1644; Q9967

== ENCOUNTER → 2021-07-24 | Outpatient (CLI) | payer MEDICARE | LOC: PAT 07:57 | PROVIDERS: ATTEND Orthopaedic Surgery | DX: Z22.322 Carrier or suspected carrier of Methicillin resistant Staphylococcus aureus (principal); M16.12 Unilateral primary osteoarthritis, left hip; Z87.891 Personal history of nicotine dependence; Z88.5 Allergy status to narcotic agent | CPT/HCPCS: 87070 ==

== ENCOUNTER 2021-08-01 09:06 | Day surgery (SDC) | payer MEDICARE ==
[2021-07-28 09:15] VITALS: BMI 33.7
--- NOTE | 2021-07-31 08:37 | HP ---
HISTORY AND PHYSICAL CHIEF COMPLAINT: Left hip pain. HISTORY OF PRESENT ILLNESS: Patient is a 61-year-old retired gentleman who presents with progressive left hip pain for the past several years, worsening over the past year. He notes anterior pain that radiates into his groin. It is worse with weightbearing and getting up from a seated position. He notes significant stiffness. He has tried therapy without much relief in addition to medications. He notes he has been limping. He has been working on weight loss. PAST MEDICAL HISTORY: Significant for arthritis, coronary artery disease, depression, type 2 diabetes, hypertension and diabetic neuropathy. PAST SURGICAL HISTORY: Significant for bilateral inguinal hernia repair, vein stripping in addition to cardiac stent placement. CURRENT MEDICATIONS: Atorvastatin, hydralazine, hydrochlorothiazide, ibuprofen, Lexapro, lisinopril, metformin, metoprolol, Plavix, and nitroglycerin. He denies drug allergies. FAMILY HISTORY: Significant for cancer. SOCIAL HISTORY: Significant for social alcohol use. REVIEW OF SYSTEMS: Sixteen-point review of systems is otherwise reviewed and noncontributory. PHYSICAL EXAMINATION: On examination, the patient is approximately 6 feet tall, 245 pounds of endomorphic habitus. HEENT exam is nonfocal. Neck is supple. On examination of his left hip, he has passive motion, flexion 70 degrees, external rotation with the hip flexed 60 degrees, internal rotation 0 degrees with pain. Clinically, he has 1 cm shortening of the left lower extremity compared to the right. He does have an antalgic gait pattern. He has limited lumbar spine motion. His distal neurovascular exam appears intact in the left lower extremity. AP and lateral views of the left hip obtained in the office show severe osteoarthrosis with [id number] changes and subchondral sclerosis. There are cystic changes involving the femoral head. IMPRESSION: 1. Left hip severe osteoarthrosis. 2. Increased body mass index. 3. History of coronary artery disease. RECOMMENDATIONS: I talked to the patient at length regarding his condition and treatment options. At this point, he is quite limited because of pain related to his osteoarthrosis despite previous conservative measures. After thorough discussion, he opts to proceed with surgery. We will plan to proceed with a left total hip arthroplasty utilizing a lateral approach. We will reinstitute his Plavix postoperatively. MMODL / IJN: [id number] /
[~2021-08-01 09:06] MED LIST changes: +ACETAMINOPHEN TAB 500 MG TAB PO PRN; -ALPRAZolam 0.25 MG TAB PO PRN; -ALPRAZolam 0.5 MG TAB PO PRN; -ASPIRIN 325 MG TAB PO ONE; -ATORVASTATIN 80 MG TAB PO STA; +DEXAMETHASONE SOD PHOSPHATE 4 MG/ML 1 ML VIAL IV ONE; +LACTATED RINGERS 1,000 ML IV SCH; +MELOXICAM 7.5 MG TAB PO PRN; +MIDAZOLAM 2 MG/2 ML VIAL IV PRN; -NITROGLYCERIN SL TABS 0.4 MG TAB SUBLINGUAL PRN; +SCOPOLAMINE 1.5MG/72HR PATCH TRANSDERM ONE; -SODIUM CHLORIDE 0.9% 1,000 ML in EMPTY BAG 1 BAG IV SCH; +TRANEXAMIC ACID 1,000 MG in SODIUM CHLORIDE 0.9% 100 ML IVPB PRN
[2021-08-01] MEDS ORDERED: LIDOCAINE 1% (10MG/ML) FOR IV START INTRADERMA ONE (09:44)
[2021-08-01] MEDS: ONDANSETRON 4 MG/2 ML VIAL IVP ONE ×2 (09:44→13:46)
[2021-08-01 09:52] LABS: Glucose,Whole Blood 77 mg/dL (75-99)
[2021-08-01] MEDS ORDERED: MIDAZOLAM 2 MG/2 ML VIAL ONE (10:51)
[2021-08-01] MEDS ORDERED: LIDOCAINE 1% INJ 10MG/ML (20 ML MDV) ONE (10:51)
[2021-08-01] MEDS ORDERED: PROPOFOL 10 MG/ML 20 ML VIAL IV ONE (10:51)
[2021-08-01] MEDS ORDERED: SUCCINYLCHOLINE CHLORIDE VIAL 200 MG/10 ML VIAL IV ONE (10:51)
[2021-08-01] MEDS ORDERED: fentaNYL (PF) 50 MCG/ML 2 ML AMP ONE (10:51)
[2021-08-01] MEDS ORDERED: TRANEXAMIC ACID 1,000 MG/10 ML VIAL ONE (10:51)
[2021-08-01] MEDS ORDERED: SODIUM CHLORIDE 0.9% 100 ML BAG ONE (10:51)
[2021-08-01 11:12] LABS: INR 0.9 (<1.2); Partial Thromboplastin Time 23.8 sec (22.0-30.0); Prothrombin Time 9.5 sec (9.0-12.0)
[2021-08-01] MEDS ORDERED: ceFAZolin 1,000 MG in SODIUM CHLORIDE 0.9% 1,000 ML IRRIGATION ONE (11:24)
[2021-08-01] MEDS ORDERED: LACTATED RINGERS 1,000 ML IV ONE (11:50)
[2021-08-01] MEDS ORDERED: NALOXONE 0.4 MG/ML 1 ML VIAL IV PRN (12:37)
[2021-08-01] MEDS ORDERED: ACETAMINOPHEN TAB 325 MG TAB PO PRN (12:37)
[2021-08-01] MEDS ORDERED: HYDROmorphone 0.5 MG/0.5 ML SYRINGE IVP PRN (12:37)
[2021-08-01] MEDS ORDERED: MAGNESIUM HYDROXIDE 2,400 MG/10 ML CUP PO PRN (12:37)
[2021-08-01] MEDS ORDERED: HYDROcodone/APAP 7.5-325MG 1 EACH TAB PO PRN ×2 (12:37→12:40)
[2021-08-01] MEDS ORDERED: HYDROmorphone 1 MG/ML 1 ML SYRINGE IVP PRN (12:37)
[2021-08-01] MEDS ORDERED: ONDANSETRON 4 MG/2 ML VIAL IVP PRN ×2 (12:37→16:48)
--- NOTE | 2021-08-01 12:53 | P.OP ---
Date of Procedure: 08/01/21 Preoperative Diagnosis: Severe left hip osteoarthrosis Postoperative Diagnosis: Same Procedure(s) Performed: Left total hip arthroplastypress-fitlateral approach Implants: Depuy Corail size 10 press-fit collared femoral stemhigh offset, 36+1.5 cobalt chrome femoral head, 56 mm [place] acetabular shell with neutral polyethylene liner. Anesthesia: GETA Surgeon: Scott Moody Laundry Attendant #1: Onesimo Aaron Estimated Blood Loss (ml): 200 Pathology: other (Femoral head) Condition: stable Disposition: PACU Indications for Procedure: The patient is a 61-year-old male presents with progressive left hip pain secondary osteoarthrosis despite conservative measures. A discussion of the risks and benefits of operative intervention versus continued conservative measures was made with the patient. He opted to proceed with surgery. Operative risks to include infection, neurovascular injury, fracture, leg length discrepancy, instability, possible component loosening/failure and need for subsequent procedures was discussed. Informed consent was obtained. Operative Findings: As below Description of Procedure: The patient was brought to the operating room, and after induction of spinal anesthesia was placed in a lateral decubitus position. The bony prominences were appropriately padded. The pelvis was stable perpendicular to the floor with a pegboard. The left lower extremity was prepped and draped in normal fashion. A 12 cm incision was then made centered over the greater trochanter extending superiorly to level the ASIS and distally in line with the femoral shaft. The skin and subcutaneous tissues were divided sharply. Electrocautery was used for hemostasis. The fascia amna and gluteus dawn fascia was split in line with the skin incision. The muscle fibers were bluntly dissected proximally. A self-retaining retractor was placed. The anterior and posterior margins of the gluteus medius muscles identified and the anterior two thirds was detached from the greater trochanter with electrocautery. The gluteus minimus tendon was identified and detached in a similar fashion. A wide capsulotomy was performed. The femoral neck fracture was identified in the lower neck cut was made approximately 1 1/2 cm above the level of the lesser trochanter with a sagittal saw at a 45 the shaft. The head was then extracted with a corkscrew. Attention was then paid towards preparing the acetabular. Anterior and posterior retractors were placed. The remaining capsular labral tissues debrided sharply clearly defining the acetabular margins. Began reaming with a 49 mm reamer taking care to initially medialize, then reaming at 45 of abduction and 20 of anteversion. Sequential reaming is performed up to 55 mm. This was down to bleeding bony surface. A trial 66 mm acetabular shell was inserted at 45 of abduction and 20 of anteversion. This was fully seated. There was good rim fit and stability. A neutral polyethylene liner was then impacted. Care taken to avoid any soft tissue interposition. Attention was then paid towards preparing the proximal femur. A box chisel was used to open the metaphyseal region. A canal finder was used to find the femoral canal. Sequential broaching was performed up to a size 10. This is placed in 15 of anteversion with the leg perpendicular floor judging off the trans-epicondylar axis. There is good rotational stability. A calcar mill was used to fashion the medial calcar. A trial high offset neck along with a 36 mm + 1.5 trial head was placed. The hip was gently reduced. It was taken through range of motion. I felt to be stable in flexion and extension with internal and external rotation. I felt there was adequate orthodox of soft tissue tension. The hip was gently dislocated. The trial components removed. Pulsatile lavage was utilized. The final size 10 high offset collared femoral stem was inserted again with the leg perpendicular to the floor in 15 of anteversion. Again there was good rotational stability. A 36 mm + 1.5 cobalt chrome femoral head was gently impacted. The hip was gently reduced. Again it was taken through motion and felt to be stable in flexion and extension with internal and external rotation. Pulsatile lavage was again utilized. With the leg in abduction the gluteus minimus and medius tendons reattached to the greater trochanter with #2 Ethibond suture. There was minimal drainage therefore a deep drain was not placed. The fascia amna and gluteus danw fascia was closed with #2 Ethibond suture. The subcutaneous tissues were reapproximated interrupted 2-0 Vicryl sutures. The skin was reapproximated with 3-0 subcuticular strata fix suture. Skin tape and adhesive was applied. A sterile dressing was applied. The patient was awoken from sedation and transferred to recovery room in good condition. Blood loss was estimated 200 mL. No complications were incurred. Sponge and needle counts were correct in the case. Alex GASTON assisted during the major composes case to include exposure, implantation, and closure.
[2021-08-01] MEDS: HYDROmorphone 0.5 MG/0.5 ML SYRINGE IVP PRN ×4 (13:20→14:03)
--- NOTE | 2021-08-01 13:41 | XR ---
Limited left hip HISTORY: Status post left hip arthroplasty Single frontal view of the left hip Patient is status post left hip arthroplasty. There is anatomic alignment. Lucencies present within t he soft tissues consistent with postop state. Exam is somewhat overpenetrated. IMPRESSION: Orthopedic follow-up
[2021-08-01] MEDS ORDERED: diphenhydrAMINE 50 MG/ML 1 ML VIAL ONE (14:04)
[2021-08-01] MEDS ORDERED: diphenhydrAMINE 50 MG/ML 1 ML VIAL IVP ONE (14:09)
[2021-08-01 16:37] LABS: Glucose,Whole Blood 189 mg/dL (75-99)
[2021-08-01] MEDS: metFORMIN 500 MG TAB PO SCH (16:47)
[2021-08-01] MEDS ORDERED: SENNOSIDES-DOCUSATE SODIUM 1 EACH TAB PO SCH (21:00)
[2021-08-01] MEDS: hydrALAZINE HCL 50 MG TAB PO SCH (21:37)
[2021-08-01] MEDS: lisinopriL 20 MG TAB PO SCH (21:37)
[2021-08-01] MEDS: METOPROLOL TARTRATE 50 MG TAB PO SCH (21:38)
[2021-08-01 22:51] LABS: Glucose,Whole Blood 222 mg/dL (75-99)
[2021-08-02 00:09] LABS: HCT 36.1 % (39.0-53.0); HGB 12.2 gm/dL (13.0-17.5); MCH 30.4 pg (25.0-35.0); MCHC 33.7 g/dL (31.0-37.0); Mean Platelet Volume 8.1; Platelet Count 220 k/uL (150-450); RBC 4.02 m/uL (4.30-5.90); RDW 12.9 % (11.5-15.5); WBC 10.6 k/uL (3.8-10.6)
[2021-08-02 00:53] LABS: ALT 39 U/L (4-49); AST 40 U/L (17-59); African American GFR (CKD) >90 (>60 ml/min/1.73 sqM); Alkaline Phosphatase 88 U/L (38-126); Anion Gap 7 mmol/L; Blood Urea Nitrogen 22 mg/dL (9-20); Calcium 8.4 mg/dL (8.4-10.2); Carbon Dioxide 28 mmol/L (22-30); Chloride 97 mmol/L (98-107); Globulin 2.9 g/dL; Glucose 210 mg/dL (74-99); Non-African American GFR(CKD) >90 (>60 ml/min/1.73 sqM); Potassium 3.7 mmol/L (3.5-5.1); Sodium 132 mmol/L (137-145); Total Bilirubin 0.3 mg/dL (0.2-1.3); Total Protein 5.9 g/dL (6.3-8.2)
[2021-08-02] MEDS: INSULIN ASPART (NovoLOG) 100 UNIT/ML VIAL SQ SCH ×3 (01:09→12:59)
[2021-08-02 06:25] LABS: Basophils % (A) 0 %; Eosinophils % (A) 0 %; HCT 36.7 % (39.0-53.0); HGB 12.1 gm/dL (13.0-17.5); Lymphocytes # (A) 1.9 k/uL (1.0-4.8); Lymphocytes % (A) 17 %; MCH 29.9 pg (25.0-35.0); MCV 90.7 fL (80.0-100.0); Mean Platelet Volume 7.9; Monocytes # (A) 0.8 k/uL (0-1.0); Monocytes % (A) 8 %; Neutrophils # (A) 8.2 k/uL (1.3-7.7); Neutrophils % (A) 73 %; Platelet Count 219 k/uL (150-450); RBC 4.05 m/uL (4.30-5.90); RDW 12.9 % (11.5-15.5); WBC 11.2 k/uL (3.8-10.6)
[2021-08-02 07:28] LABS: Glucose,Whole Blood 238 mg/dL (75-99)
[2021-08-02] MEDS: lisinopriL 20 MG TAB PO SCH (08:58)
[2021-08-02] MEDS: hydrALAZINE HCL 50 MG TAB PO SCH (08:59)
[2021-08-02] MEDS ORDERED: ESCITALOPRAM 10 MG TAB PO SCH (09:00)
[2021-08-02] MEDS ORDERED: RIVAROXABAN 10 MG TAB PO SCH (09:00)
[2021-08-02] MEDS ORDERED: ATORVASTATIN 80 MG TAB PO SCH (09:00)
[2021-08-02] MEDS ORDERED: PIOGLITAZONE 30 MG TAB PO SCH (09:00)
[2021-08-02] MEDS ORDERED: ISOSORBIDE MONONITRATE ER 30 MG TAB.ER.24H PO SCH (09:00)
[2021-08-02] MEDS: metFORMIN 500 MG TAB PO SCH (09:00)
[2021-08-02] MEDS: METOPROLOL TARTRATE 50 MG TAB PO SCH (09:03)
[2021-08-02] MEDS ORDERED: INSULIN DETEMIR (LEVEMIR) 100 UNIT/ML SYR SQ SCH (09:15)
--- NOTE | 2021-08-02 09:48 | P.PN ---
Subjective Progress Note Date: 08/02/21 Principal diagnosis: Status post left total hip arthroplasty Patient is examined at bedside today, he's resting in his hospital chair. He's been ambulating with the assistance of his walker. Patient is having no issues with urination at this time, he is passing gas. His pain is currently controlled. Currently denies any headaches, lightheadedness, chest pain or shortness of breath. Objective - Vital Signs Vital signs: Vital Signs Temp 98.6 F 08/02/21 07:51 Pulse 81 08/02/21 07:51 Resp 18 08/02/21 07:51 BP 145/81 08/02/21 07:51 Pulse Ox 96 08/02/21 07:51 Intake & Output 08/01/21 08/02/21 08/02/21 18:59 06:59 18:59 Intake Total 1451 Output Total 400 300 Balance 1051 -300 Weight 114 kg Intake: IV 1451 Output: Urine 200 300 Estimated Blood Loss 200 Other: # Voids 6 - Exam Left lower extremity: Incision is clean, dry, and intact. The exofin fusion tape is in good condition. There is minimal soft tissue swelling and ecchymosis surrounding the medial and lateral aspects of the incision. Calf is soft, no tenderness with palpation. Plantar flexion, dorsiflexion, EHL, FHL are intact. Sensory exam to light touch throughout the extremity is intact, dorsal pedis pulses 2+. - Labs CBC & Chem 7: 08/02/21 05:38 08/01/21 23:53 Labs: Abnormal Lab Results - Last 24 Hours (Table) 08/01/21 08/01/21 08/01/21 Range/Units 16:36 22:50 23:53 WBC (3.8-10.6) k/uL RBC 4.02 L (4.30-5.90) m/uL Hgb 12.2 L (13.0-17.5) gm/dL Hct 36.1 L (39.0-53.0) % Neutrophils # (1.3-7.7) k/uL Sodium (137-145) mmol/L Chloride (98-107) mmol/L BUN (9-20) mg/dL Glucose (74-99) mg/dL POC Glucose (mg/dL) 189 H 222 H (75-99) mg/dL Total Protein (6.3-8.2) g/dL Albumin (3.5-5.0) g/dL 08/01/21 08/02/21 08/02/21 Range/Units 23:53 05:38 07:26 WBC 11.2 H (3.8-10.6) k/uL RBC 4.05 L (4.30-5.90) m/uL Hgb 12.1 L (13.0-17.5) gm/dL Hct 36.7 L (39.0-53.0) % Neutrophils # 8.2 H (1.3-7.7) k/uL Sodium 132 L (137-145) mmol/L Chloride 97 L (98-107) mmol/L BUN 22 H (9-20) mg/dL Glucose 210 H (74-99) mg/dL POC Glucose (mg/dL) 238 H (75-99) mg/dL Total Protein 5.9 L (6.3-8.2) g/dL Albumin 3.0 L (3.5-5.0) g/dL Assessment and Plan Assessment: Postoperative day #1 status post left total hip arthroplasty, lateral approach Plan: Pain control, plan for discharge home on Roberta 7.5 mg/325 mg DVT prophylaxis, Eliquis 2.5 mg twice a day for 30 days Wound care instructions were discussed with patient, this including both showering and icing instructions Home health care, this including therapy and nursing after discharge Encourage incentive spirometer Continue work with PT while in hospital, recommend use of walker, hip precautions were discussed Medical recommendations Discharge planning: Patient will be discharged home later today Time with Patient: Less than 30
--- NOTE | 2021-08-02 10:00 | P.DS ---
Providers Date of admission: 08/01/2021 Expected date of discharge: 08/02/21 Attending physician: Scott Moody Consults: 08/01/21 12:37 Consult Physician Routine Consulting Provider: Dago Bull Consult Reason/Comments: medical management Do you want consulting provider notified?: Yes Primary care physician: Trip [facility] Hospital Course: Date of admission: 08/01/2021 Date of discharge: 08/02/2021 Admission diagnosis: Status post left total hip arthroplasty, lateral approach Discharge diagnosis: Same Attending physician: Dr. Moody Surgical procedures: Left total hip arthroplasty, lateral approach Brief history: Patient is a 61-year-old male with a history of progressive primary left hip osteoarthritis. At this point patient has failed conservative treatment measures and has opted to proceed with a elective left total hip arthroplasty. Hospital course: Details of patient's surgery can be found in operative report. Patient tolerated the procedure well and was subsequently transported to orthopedic floor. Patient's orthopeidc and medical care was provided daily. Patient had daily laboratory tests performed for evaluation of overall blood counts. Patient had daily physical therapy to include strengthening range of motion as well as education with walker ambulation. Patient was treated with [Xarelto] for their postoperative DVT prophylaxis during their inpatient stay. Patient was noted to have a relatively uneventful postoperative course. Patient reported satisfactory pain control with oral pain medications by postoperative day 0. Patient showed satisfactory progress with physical therapy. Patient moved steadily through the program and had no difficulty meeting the goals by postoperative day 1. Given patient's otherwise satisfactory course and having met physical therapy goals, plan is to discharge patient [home] on postoperative day 1. Discharge condition/disposition: Patient will be discharged [home] in stable condition. Discharge medications: Instructions are given on resumption of patient's normal daily medications per primary care recommendation, in addition patient will be prescribed [place] 7.5 mg/325 mg, SennaS, Eliquis 2.5 mg. Discharge instructions: 1. Wound care and infection precautions, [keep incision dry and covered while showering], no lotions, creams, moisturizers. No soaking, tubs, pools, hottubs. Do not scrub over the incision. 2. Weight-bear [as tolerated] with walker / cane until follow-up. 3. Ice and elevate when necessary. Do not exceed 20 minutes per hour with ice pack. 4. Utilize compression sleeve until seen at first follow up appointment. 5. Visiting nursing care. 6. Home physical therapy. 7. Pain meds and anticoagulants per prescription. 8. Pain medication has potential to cause constipation. Increase oral fluid and fiber intake. Contact primary care provider if you have not had a bowel movement within 48 hours after discharge 9. No anti-inflammatory medication until discussed at first post operative visit, this including Motrin, Aleve, Mobic, Diclofenac, [Aspirin]. 10. Follow up in office at 2 weeks postop with Alex Aaron PA-C/Guillermo Chauhan 11. Follow up with your primary care doctor 7-10 days after discharge. 12. Contact [facility] with any questions, . Activity level instructions: 1. Do not cross legs 2. Do not sleep on the left side 3. Avoid sitting in lower chairs 4. Utilize walker ambulation Procedures: Left total hip arthroplasty, lateral approach Patient Condition at Discharge: Good Plan - Discharge Summary Discharge Rx Participant: Yes New Discharge Prescriptions: New Apixaban [Eliquis] 2.5 mg PO BID #60 tab HYDROcodone/APAP 7.5-325MG [[place] 7.5] 1 - 2 each PO Q6HR PRN #42 tab PRN Reason: Pain Sennosides/Docusate Sodium [Senna Plus 8.6-50 mg Softgel] 1 each PO DAILY PRN #30 capsule PRN Reason: Constipation No Action lisinopriL [Zestril] 20 mg PO BID hydroCHLOROthiazide 50 mg PO DAILY Escitalopram [Lexapro] 10 mg PO QAM metFORMIN HCL [Glucophage] 1,000 mg PO BID Isosorbide Mononitrate ER [Imdur] 30 mg PO QAM glipiZIDE [Glucotrol] 10 mg PO DAILY Metoprolol Tartrate [Lopressor] 50 mg PO BID Semaglutide [Ozempic] 0.5 mg SQ FR Atorvastatin [Lipitor] 80 mg PO DAILY hydrALAZINE HCL 50 mg PO BID Aspirin [Adult Low Dose Aspirin EC] 81 mg PO DAILY Discharge Medication List Escitalopram [Lexapro] 10 mg PO QAM 05/28/18 [History] Isosorbide Mononitrate ER [Imdur] 30 mg PO QAM 05/28/18 [History] hydroCHLOROthiazide 50 mg PO DAILY 05/28/18 [History] lisinopriL [Zestril] 20 mg PO BID 05/28/18 [History] metFORMIN HCL [Glucophage] 1,000 mg PO BID 05/28/18 [History] Atorvastatin [Lipitor] 80 mg PO DAILY 05/02/21 [History] Metoprolol Tartrate [Lopressor] 50 mg PO BID 05/02/21 [History] Semaglutide [Ozempic] 0.5 mg SQ FR 05/02/21 [History] glipiZIDE [Glucotrol] 10 mg PO DAILY 05/02/21 [History] hydrALAZINE HCL 50 mg PO BID 05/02/21 [History] Aspirin [Adult Low Dose Aspirin EC] 81 mg PO DAILY 07/20/21 [History] Apixaban [Eliquis] 2.5 mg PO BID #60 tab 08/02/21 [Rx] HYDROcodone/APAP 7.5-325MG [[place] 7.5] 1 - 2 each PO Q6HR PRN #42 tab 08/02/21 [Rx] Sennosides/Docusate Sodium [Senna Plus 8.6-50 mg Softgel] 1 each PO DAILY PRN #30 capsule 08/02/21 [Rx] Follow up Appointment(s)/Referral(s): Guillermo Tejeda, [facility] [[facility]] - 2 Weeks Activity/Diet/Wound Care/Special Instructions: Orthopedic Discharge Instructions: 1. Wound care and infection precautions, keep incision dry and covered while showering, no lotions, creams, moisturizers. No soaking, pools, hot tubs. Do not scrub over incision. 2. Weight-bear as tolerated with walker / cane until follow-up. 3. Ice and elevate when necessary. Do not exceed 20 minutes per hour with ice pack. 4. Utilize compression sleeve until seen at first follow up appointment. 5. Pain meds and anticoagulants per prescription. 6. Pain medication has potential to cause constipation. Increase oral fluid and fiber intake. Contact primary care provider if you have not had a bowel movement within 48 hours after discharge. 7. No anti-inflammatory medication until discussed at first post operative visit, this including Motrin, Aleve, Mobic, Diclofenac. 8. Follow up in office at 2 weeks postop with Alex Aaron PA-C/Guillermo Tejeda PA-C 9. Follow up with your primary care doctor 7-10 days after discharge. 10. Contact [facility] with any questions, . Activity level restrictions: 1. Do not sleep on left side neck centered 2. Do not cross legs 3. Avoid sitting in a low seated chair 4. Utilize walker with ambulation Discharge Disposition: HOME SELF-CARE
[2021-08-02 11:45] LABS: Glucose,Whole Blood 195 mg/dL (75-99)
[2021-08-02 13:55] VITALS: BP 106/66; PULSE 74; RESP 17; TEMP 97.7
[2021-08-02] MEDS ORDERED: INSULIN ASPART (NovoLOG) 100 UNIT/ML VIAL SQ SCH (23:31)
--- NOTE | 2021-08-03 15:57 | P.CONS ---
History of Present Illness - Reason for Consult Consult date: 08/02/21 - History of Present Illness HISTORY OF PRESENT ILLNESS This is a 61-year-old male patient of Dr. Patel in Dr. 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 Patient is status post left total hip arthroplasty, lateral approach completed by Dr. Moody. Patient has had no postop complications. He states he is a little tender today. His last hemoglobin A1c he states was 9.7 and discussed need for patient to have improved glucose control. He has been seen by Dr. Fariba Bull, center aisle cashier, in the past but has not followed up. We are recommending the patient be discharged home on . REVIEW OF SYSTEMS Constitutional: No fever, no chills, no night sweats. No weight change. No we akness, fatigue or lethargy. No daytime sleepiness. EENT: No headache. No blurred vision or double vision, no loss of vision. No loss of Hearing, no ringing in the ears, no dizziness. No nasal drainage or congestion. No epistaxis. No sore throat. Lungs: No shortness of breath, cough, no sputum production. No wheezing. Cardiovascular: No chest pain, no lower extremity edema. No palpitations. No paroxysmal nocturnal dyspnea. No orthopnea. No lightheadedness or dizziness. No syncopal episodes. Abdominal: No abdominal pain. No nausea, vomiting. No diarrhea. No constipation. No bloody or tarry stools. No loss of appetite. Genitourinary: No dysuria, increased frequency, urgency. No urinary retention. Musculoskeletal: No myalgias. No muscle weakness, no gait dysfunction, no emma quent falls. No back pain. No neck pain. Left hip discomfort. Integumentary: No wounds, no lesions. No rash or pruritus. No unusual bruising. No change in hair or nails. Neurologic: No aphasia. No facial droop. No change in mentation. No head injury. No headache. No paralysis. No paresthesia. Psychiatric: No depression. No anxiety. No mood swings. Endocrine: No abnormal blood sugars. No weight change. No excessive sweating or thirst. No cold intolerance. SOCIAL HISTORY Patient is a lifelong nonsmoker, occasional alcohol use, no illicit drug use or marijuana use.. FAMILY HISTORY Mother is alive at age 87 with history of hypertension. Grandmother had history of myocardial infarction and diabetes. Father from lung cancer. Brothers have history of hypertension. Patient has 1 sister with no major medical problems. Patient has 2 children with no major medical problems. PHYSICAL EXAMINATION Gen: This is a 61-year-old male, sitting in recliner and appears to be comfortable. HEENT: Head is atraumatic, normocephalic. Pupils equal, round. Sclerae is anicteric. NECK: Supple. No JVD. No lymphadenopathy. No thyromegaly. LUNGS: Clear to auscultation. No wheezes or rhonchi. No intercostal retractions. HEART: Regular rate and rhythm. No murmur. ABDOMEN: Soft. Bowel sounds are present. No masses. No tenderness. EXTREMITIES: No pedal edema. No calf tenderness. Dressing in place to the left hip. NEUROLOGICAL: Patient is awake, alert and oriented x3. Cranial nerves 2 through 12 are grossly intact. ASSESSMENT AND PLAN 1. Osteoarthritis status post left total hip arthroplasty. Patient is had no postop complications. He is anticipating discharge home today. 2. Diabetes mellitus type 2 uncontrolled with A1c of 9.7. Patient will be started on Farxiga. Continue metformin 1000 mg twice daily, glipizide 10 mg daily, Ozempic 0.5 mg subcu on Fridays 3. History of coronary artery disease. Continue him nor 30 mg daily. 4. Hyperlipidemia. Continue atorvastatin 80 mg daily 5. Obstructive sleep apnea on CPAP. 6. Hypertension. Continue hydralazine 50 mg twice daily, Lopressor 50 g twice daily, hydrochlorothiazide 50 mg daily, lisinopril 20 mg twice daily. DISCHARGE PLAN Home with [facility]. Impression and plan of care have been directed as dictated by the signing physician. Valeria Coats nurse practitioner acting as scribe for signing physician. Past Medical History Past Medical History: Diabetes Mellitus, Hyperlipidemia, Myocardial Infarction ([place]), Osteoarthritis (OA), Sleep Apnea/CPAP/BIPAP Additional Past Medical History / Comment(s): Phlebitis left lower extremity, varicose veins, diabetic neuropathy in feet and hands, CPAP use, hydrocele and varicocele in scrotum. Last Myocardial Infarction Date:: 2013 History of Any Multi-Drug Resistant Organisms: None Reported Past Surgical History: Heart Catheterization, Heart Catheterization With Stent, Hernia Repair Additional Past Surgical History / Comment(s): Tumor removed from left adrenal gland, left adrenal gland removed, stomach tumor removed, left leg vein stripping. Past Anesthesia/Blood Transfusion Reactions: No Reported Reaction Date of Last Stent Placement:: 2013 Past Psychological History: Depression Additional Psychological History / Comment(s): pt lives with his vicente. is independant. 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 no service in past. has a cpap machine. no home care services. Smoking Status: Former smoker Past Alcohol Use History: Occasional Additional Past Alcohol Use History / Comment(s): Patient smoked as a teenager only. Past Drug Use History: None Reported - Past Family History Mother Family Medical History: COPD, Hypertension Additional Family Medical History / Comment(s): Mother is alive at age 87 with history of hypertension. Grandmother had history of myocardial infarction and diabetes. Brother(s) Family Medical History: Cancer, Hypertension Additional Family Medical History / Comment(s): Brothers have history of hypertension. Patient has 1 sister with no major medical problems. Patient has 2 children with no major medical problems. Father Family Medical History: Cancer Additional Family Medical History / Comment(s): Lung cancer. Medications and Allergies Home Medications Medication Instructions Recorded Confirmed Type Escitalopram [Lexapro] 10 mg PO QAM 05/28/18 07/28/21 History Isosorbide Mononitrate ER [Imdur] 30 mg PO QAM 05/28/18 07/28/21 History hydroCHLOROthiazide 50 mg PO DAILY 05/28/18 07/28/21 History lisinopriL [Zestril] 20 mg PO BID 05/28/18 07/28/21 History metFORMIN HCL [Glucophage] 1,000 mg PO BID 05/28/18 07/28/21 History Atorvastatin [Lipitor] 80 mg PO DAILY 05/02/21 07/28/21 History Metoprolol Tartrate [Lopressor] 50 mg PO BID 05/02/21 07/28/21 History Semaglutide [Ozempic] 0.5 mg SQ FR 05/02/21 07/28/21 History glipiZIDE [Glucotrol] 10 mg PO DAILY 05/02/21 07/28/21 History hydrALAZINE HCL 50 mg PO BID 05/02/21 07/28/21 History Apixaban [Eliquis] 2.5 mg PO BID #60 tab 08/02/21 Rx Aspirin [Adult Low Dose Aspirin EC] 81 mg PO DAILY #0 08/02/21 07/28/21 Rx Dapagliflozin Propanediol [Farxiga] 10 mg PO DAILY #30 tablet 08/02/21 Rx HYDROcodone/APAP 7.5-325MG [[place] 1 - 2 each PO Q6HR PRN #42 tab 08/02/21 Rx 7.5] Sennosides/Docusate Sodium [Senna 1 each PO DAILY PRN #30 capsule 08/02/21 Rx Plus 8.6-50 mg Softgel] Allergies Allergy/AdvReac Type Severity Reaction Status Date / Time perflutren [From [place]] AdvReac PATIENT Verified 08/01/21 09:25 STATES HE HAD TEMPORARY PARALYSIS Physical Exam Vitals: Vital Signs Temp Pulse Pulse Resp BP Pulse Ox 08/02/21 08:00 81 18 08/02/21 07:51 98.6 F 81 18 145/81 96 08/02/21 02:00 98.1 F 82 16 149/98 96 08/01/21 20:00 97.8 F 88 17 133/74 97 08/01/21 16:50 69 109/67 94 L 08/01/21 16:35 69 111/67 94 L 08/01/21 16:20 69 113/70 92 L 08/01/21 16:06 71 115/67 95 08/01/21 15:50 67 110/74 97 08/01/21 15:35 73 123/73 95 08/01/21 15:20 84 152/93 93 L 08/01/21 15:05 98.1 F 70 18 117/65 93 L 08/01/21 14:46 72 18 139/83 94 L 08/01/21 14:30 81 18 150/79 94 L 08/01/21 14:16 79 18 150/84 94 L 08/01/21 14:00 79 18 150/91 93 L 08/01/21 13:46 79 18 162/85 93 L 08/01/21 13:31 73 18 158/83 93 L 08/01/21 13:16 72 18 158/87 93 L 08/01/21 13:00 72 20 157/86 92 L 08/01/21 12:53 97.1 F L 76 20 174/87 91 L Intake and Output 08/01/21 08/02/21 08/02/21 22:59 06:59 14:59 Output Total 500 Balance -500 Output: Urine 500 Other: # Voids 6 Weight 114 kg Results CBC & Chem 7: 08/02/21 05:38 08/01/21 23:53 Labs: Abnormal Lab Results - Last 24 Hours (Table) 08/01/21 08/01/21 08/01/21 Range/Units 16:36 22:50 23:53 WBC (3.8-10.6) k/uL RBC 4.02 L (4.30-5.90) m/uL Hgb 12.2 L (13.0-17.5) gm/dL Hct 36.1 L (39.0-53.0) % Neutrophils # (1.3-7.7) k/uL Sodium (137-145) mmol/L Chloride (98-107) mmol/L BUN (9-20) mg/dL Glucose (74-99) mg/dL POC Glucose (mg/dL) 189 H 222 H (75-99) mg/dL Total Protein (6.3-8.2) g/dL Albumin (3.5-5.0) g/dL 08/01/21 08/02/21 08/02/21 Range/Units 23:53 05:38 07:26 WBC 11.2 H (3.8-10.6) k/uL RBC 4.05 L (4.30-5.90) m/uL Hgb 12.1 L (13.0-17.5) gm/dL Hct 36.7 L (39.0-53.0) % Neutrophils # 8.2 H (1.3-7.7) k/uL Sodium 132 L (137-145) mmol/L Chloride 97 L (98-107) mmol/L BUN 22 H (9-20) mg/dL Glucose 210 H (74-99) mg/dL POC Glucose (mg/dL) 238 H (75-99) mg/dL Total Protein 5.9 L (6.3-8.2) g/dL Albumin 3.0 L (3.5-5.0) g/dL
== END 2021-08-02 14:55 | disposition home or self-care (01) ==
LOC: OR 09:06 → 4SSUR 14:26 → OR 08-02 14:55
PROVIDERS: ATTEND Orthopaedic Surgery
DX: M16.12 Unilateral primary osteoarthritis, left hip (principal); Z79.01 Long term (current) use of anticoagulants; Z79.82 Long term (current) use of aspirin; Z79.84 Long term (current) use of oral hypoglycemic drugs; Z20.822 Contact with and (suspected) exposure to COVID-19
CPT/HCPCS: 27130; 97161; 86900; 86901; 80053; 85025; 85027; 85610; 85730; 86850; 88300; 83036; 87635; 73501; 36415; C1776; J2250; J0330; J1200; J1100; J0690 ×3; J2405; J2001; J3010; J1170 ×2; J2704

== ENCOUNTER → 2022-02-15 | Outpatient (CLI) | payer MEDICARE ==
--- NOTE | 2022-02-16 01:46 | MR ---
EXAMINATION TYPE: MR lumbar spine wo con DATE OF EXAM: 02/15/2022 COMPARISON: 08/19/2018 HISTORY: Low back pain that radiates down left leg. Multiplanar multiecho imaging of the lumbar spine without contrast. Normal alignment. There is severe narrowing at L5-S1 disc space with anterior mild spur formation. Th ere is anterior bridging osteophyte at L5-S1. The other disc spaces are normal. There is some hypertr ophic facet arthropathy at L4-5 with lateral recess stenosis. There is no lumbar paraspinal mass. No compression fracture. No evidence of focal bone destruction. There is some right side L5-S1 neural fo raminal narrowing due to facet arthropathy and disc space narrowing. No evidence of significant spina l stenosis. IMPRESSION: There is spondylosis at L5-S1 with disc space narrowing and mild right-sided neural foraminal narrowi ng. No fracture. Mild lateral recess stenosis at L4-5. No change compared to old exam.
== END | disposition home or self-care (01) ==
LOC: RADMRIMAIN 12:45
PROVIDERS: ATTEND Orthopaedic Surgery
DX: M47.27 Other spondylosis with radiculopathy, lumbosacral region (principal); M48.061 Spinal stenosis, lumbar region without neurogenic claudication
CPT/HCPCS: 72148

== ENCOUNTER → 2022-02-28 | Outpatient (CLI) | payer MEDICARE ==
--- NOTE | 2022-02-28 10:00 | P.CON ---
Consult Note - . Consult date: 02/28/22 Assessment/Plan:: HISTORY OF PRESENT ILLNESS: 61 yr old male as a referral from Dr. Rascon resents today with chronic and severe LBP LBP since 1989 after a fall injury, and secondary to L5-S1 disc collapse, neuroforaminal stenoses, spondylosis and facet arthropathy for evaluation. He states his pain level is currently at 7/10 in intensity, constant, pinching stabbing sore in character with radiation of pain slightly left and right of midline. Pain is provoked with prolonged sitting and standing for periods of 20 minutes or more. Pain is relieved with: PT in 06/2022 but worsened pain; PT in hips in 11/2021 but was ineffective; heat, medications (Motrin 8500mg, Tylenol OTC, topicals), guided home stretching regimen, repositioning and rest. PMH: Diabetes Mellitus, Hyperlipidemia, Hypertension, Myocardial Infarction (2003), Sleep Apnea/CPAP/BIPAP PSH: Heart Catheterization With Stent, Hernia Repair SH: Negative x 3 FH: Mother is alive at age 87 with history of hypertension. Grandmother had history of myocardial infarction and diabetes. Father from lung cancer. Brothers have history of hypertension. Patient has 1 sister with no major medical problems. Patient has 2 children with no major medical problems. All: See list Meds: See list REVIEW OF ORGAN SYSTEMS: CONSTITUTIONAL: No fevers or chills. No recent weight loss. HEENT: No visual acuity loss, eye pain, difficulties with hearing. No nosebleeds. No difficulty swallowing. RESPIRATORY: Denies any troubles with breathing or dyspnea on exertion. CARDIOVASCULAR: Denies any chest pain, palpitations, or recent heart attacks. GASTROINTESTINAL: Denies fatty food intolerance. Has change in bowel habits and gas bloat. GENITOURINARY: Denies any blood in urine. Has increased urinary frequency. NEUROLOGICAL: + numbness and tingling along the distal extremities. No seizure disorders or headaches. MUSCULOSKELETAL: + back pain SKIN: No skin cancer. No rash. PSYCHIATRIC: Denies current depression or suicidal thoughts. ENDOCRINE: Denies current thyroid disorders. Denies any blood sugar glucose intolerance. HEME/LYMPHATIC: Denies any lumps and bumps around the neck. History of deep venous thrombosis. ALLERGY/IMMUNOLOGY: No immunoglobulin therapy. No immune deficiencies. BREAST: Denies current breast lumps, pain or nipple discharge. Physical Examinations : Constitutional : Cooperative , not in acute distress . HEENT: Neck supple. No Lymphadenopathy. Normal thyroid size . Eyes no ptosis , no icterus, no photophobia . Hearing intact. Normal oropharynx. No Thrush. Respiratory : Chest clear to auscultations bilaterally. No wheezing. No rhonchi. Cardiovascular : Regular rate and rhythm , S1 / S2. No S3 . No S4. Gastrointestinal : Abdomen soft. No tenderness. Bowel sounds x 4. No organomegaly . Genitourinary : Deferred. Neurologic : Cranial nerve II to XII intact. No focal neurological deficits. Psychiatric : alert & oriented x 3. Matching mood & appropriate affect. Judgment & insight intact. Lymphatic No Lymphadenopathy. Musculoskeletal : Cervical Spine Motor strength in the deltoid and biceps: Normal right side. Normal Left side Motor strength biceps and the wrist ex tensors: Normal right side . Normal left side Motor strength in the triceps muscle: Normal right side. Normal left side Deep tendon reflexes: Normal at the biceps. Normal at Brachioradialis. Normal at triceps Cervical facet loading test: positive bilaterally Spurling test: positive bilaterally Neck distraction test: positive bilaterally Don sign: positive bilaterally Lumbar spine Motor strength lower extremities ,thigh and legs 5/5 Right side , 5/5 Left side Deep tendon reflexes : Normal Knee Jerk. Normal Ankle Jerk Vertebral body tenderness over L5 Lumbar facet Loading Test: positive Right / positive Left Range of motion of the lumbar spine Flexion 30 degrees, extension 10 degrees Straight Leg Raise test: Left/ Right positive at degree Pastora test: positive right / positive left. Severe tenderness over the Sacroiliac joint on the Right / Left sides Gaenslen test: positive bilaterally Seated flexion test: positive bilaterally. Sacral spine : Severe tenderness over the Sacroiliac joint: right side / left side Range of motion: Flexion of the lumbar spine <60 degrees Range of motion: Extension of the lumbar spine <20 degrees Gaenslen's Test positive Nicolás's Test positive Pastora test: positive right side / left side Thigh Thrust Test Sacral Thrust Test Imaging: MRI without contrast of the Lumbar spine reviewed Assessment/ Plan : Recommendation of LESI L5-S1. May need a series of injections, up to 3 within a 6 mo period, for optimal pain relief. Risks, benefits of procedure discussed and patient verbalized understanding. Admits to Eliquis use and medical history of diabetes. Protocol for discontinuation/continuation of medications eris procedure discussed. All questions answered. I have spent greater than 50 minutes on patient care today. Dr Linares was available by phone for the evaluation of this patient. The time was used to review the medical records including relevant urine studies and Prescription history (MAPs), review of the available imaging, evaluation and examination of the patient, coordination of care with the medical staff and if applicable referring physicians, as well as creation of the medical record PQRS Measure Charge Sheet PQRS Narrative: Smoking Status Former smoker Pain Intensity [Lower Back] 8 Scale Used Numeric (1 - 10) Home Medications: Ambulatory Orders Escitalopram [Lexapro] 10 mg PO QAM 05/28/18 Isosorbide Mononitrate ER [Imdur] 30 mg PO QAM 05/28/18 hydroCHLOROthiazide 50 mg PO DAILY 05/28/18 lisinopriL [Zestril] 20 mg PO BID 05/28/18 metFORMIN HCL [Glucophage] 1,000 mg PO BID 05/28/18 Atorvastatin [Lipitor] 80 mg PO DAILY 05/02/21 Metoprolol Tartrate [Lopressor] 50 mg PO BID 05/02/21 Semaglutide [Ozempic] 0.5 mg SQ FR 05/02/21 glipiZIDE [Glucotrol] 10 mg PO DAILY 05/02/21 hydrALAZINE HCL 50 mg PO BID 05/02/21 Apixaban [Eliquis] 2.5 mg PO BID #60 tab 08/02/21 Aspirin [Adult Low Dose Aspirin EC] 81 mg PO DAILY #0 08/02/21 Dapagliflozin Propanediol [Farxiga] 10 mg PO DAILY #30 tablet 08/02/21 HYDROcodone/APAP 7.5-325MG [[place] 7.5] 1 - 2 each PO Q6HR PRN #42 tab 08/02/21 Sennosides/Docusate Sodium [Senna Plus 8.6-50 mg Softgel] 1 each PO DAILY PRN #30 capsule 08/02/21
[2022-02-28 10:57] VITALS: BP 129/82; PULSE 69; RESP 18; TEMP 98.2
== END ==
LOC: PNWHC3 08:51
PROVIDERS: ATTEND Specialist
DX: M47.816 Spondylosis without myelopathy or radiculopathy, lumbar region (principal); G89.29 Other chronic pain; M48.061 Spinal stenosis, lumbar region without neurogenic claudication; E11.9 Type 2 diabetes mellitus without complications; E78.5 Hyperlipidemia, unspecified; I10 Essential (primary) hypertension; I25.2 Old myocardial infarction; Z87.891 Personal history of nicotine dependence; Z79.82 Long term (current) use of aspirin; Z79.84 Long term (current) use of oral hypoglycemic drugs; Z79.899 Other long term (current) drug therapy; Z88.8 Allergy status to other drugs, medicaments and biological substances
CPT/HCPCS: 99211

== ENCOUNTER 2022-06-19 07:53 | Day surgery (SDC) | payer MEDICARE ==
[~2022-06-19 07:53] MED LIST changes: -ACETAMINOPHEN TAB 500 MG TAB PO PRN; -DEXAMETHASONE SOD PHOSPHATE 4 MG/ML 1 ML VIAL IV ONE; +LIDOCAINE 1% (10MG/ML) FOR IV START INTRADERMA PRN; -MELOXICAM 7.5 MG TAB PO PRN; -MIDAZOLAM 2 MG/2 ML VIAL IV PRN; -SCOPOLAMINE 1.5MG/72HR PATCH TRANSDERM ONE; -TRANEXAMIC ACID 1,000 MG in SODIUM CHLORIDE 0.9% 100 ML IVPB PRN
[2022-06-19] MEDS ORDERED: LACTATED RINGERS 1,000 ML IV ONE ×2 (08:25)
[2022-06-19 08:28] LABS: Glucose,Whole Blood 130 mg/dL (70-110)
[2022-06-19 08:29] VITALS: TEMP 97.3
[2022-06-19] MEDS ORDERED: MIDAZOLAM 2 MG/2 ML VIAL ONE (08:49)
[2022-06-19] MEDS ORDERED: methylPREDNISolone ACETATE 40 MG/ML 1 ML VIAL ONE (08:49)
[2022-06-19] MEDS ORDERED: fentaNYL (PF) 50 MCG/ML 2 ML AMP ONE (08:49)
--- NOTE | 2022-06-19 09:03 | P.PCN ---
Date of Procedure: 06/19/22 Procedure(s) Performed: PREOPERATIVE DIAGNOSIS: 1- Lumbar radiculopathy 2-Lumbar spondylosis with Facet arthropathy without myelopathy. 3-lumbar spinal stenosis POSTOPERATIVE DIAGNOSIS: Same as preop diagnosis. PROCEDURE 1. Lumbar epidural steroid injection under fluoroscopic guidance at the L5-S1 level. (Fluoroscopy imaging was available in radiology department) ANESTHESIA: moderate sedation with intravenous Versed 2 mg ,and fentanyle 100 Mcg Sedation start time : 0 852 Sedation end time : 0 858 EBL: Minimal PROCEDURE INDICATION: The patient with low back pain and radiculitis symptoms unresponsive to conservative treatment. Fluoroscopy was used to optimize visualization of the needle placement and to maximize safety. PROCEDURE DESCRIPTION / TECHNIQUE: The patient was seen and identified in the preoperative area. Risks, benefits, complications including but not limited to infections ,bleeding ,allergic reaction to the medications ,nerve damage and not complete pain releife , and alternatives were discussed with the patient. The patient agreed to proceed with the procedure and signed the consent. IV was started, and vital signs were stable. Patient was taken to the OR and time out was completed. The patient was placed in the prone position on procedure table and a pillow was placed under the abdomen to reduce lumbar lordosis. The lumbosacral area was prepped and draped in the usual sterile fashion.ere closely monitored during the procedure. Conscious sedation was used during the procedure to decrease patients anxiety. Vital signs was monitered during the entire procedure. Using anterior-posterior fluoroscopy, the L5-S1 interlaminar space was identified and the skin over this site was marked and then infiltrated with 1% lidocaine subcutaneously. Subsequently, a 20-gauge Tuohy epidural needle was inserted and advanced toward the epidural space using the ``Loss of resistance technique and guided by AP and lateral fluoroscopy, after negative aspiration for blood and CSF and in the absence of paresthesias. Again after negative aspiration, a 6 ml mixture containing 40 mg of Depo-medrol ( Preservetive Free ), and 2 ml of preservative free Normal Saline, and 2 ml of preservative free lidocaine 1% solution was injected and a washout of epidurogram was seen. Needle was withdrawn intact, skin was cleansed, and bandages were applied. note= Isovue was not injected because patient had an ALLERGY to dye COMPLICATIONS: None DISPOSITION / PLANS: The patient was placed in a supine position and transferred to the recovery area in a stable condition for observation. There was no evidence of lower extremity motor or sensory deficit after the procedure. Patient was discharged from the recovery room after meeting discharge criteria. Home discharge instructions were given to the patient by the staff. The patient was reexamined prior to discharge. The patient will schedule a follow up in the clinic in 2-4 weeks.
[2022-06-19] MEDS ORDERED: IV FLUID CONTINUATION 500 ML IV ONE (09:06)
[2022-06-19] MEDS ORDERED: ONDANSETRON 4 MG/2 ML VIAL ONE (09:09)
--- NOTE | 2022-06-19 09:18 | FL ---
Fluoroscopy HISTORY: Pain 2 seconds fluoroscopy time supplied to the referring clinician. 1 intraoperative C-arm images docume nt the procedure. See dictated report from anesthesia.
[2022-06-19] MEDS ORDERED: SCOPOLAMINE 1 MG/72 HR PATCH TRANSDERM ONE (09:19)
[2022-06-19 10:25] VITALS: RESP 16
[2022-06-19 11:03] VITALS: BP 139/82; PULSE 63
== END 2022-06-19 11:15 | disposition home or self-care (01) ==
LOC: ORPAIN 07:53
PROVIDERS: ATTEND Specialist
DX: M47.26 Other spondylosis with radiculopathy, lumbar region (principal); M48.061 Spinal stenosis, lumbar region without neurogenic claudication; Z88.1 Allergy status to other antibiotic agents
CPT/HCPCS: 62323; J2250; J1030; J2405; J3010; J1790

== ENCOUNTER → 2022-07-05 | Outpatient (CLI) | payer MEDICARE ==
[2022-07-05 09:26] VITALS: BP 169/95; PULSE 63; RESP 18
--- NOTE | 2022-07-05 14:47 | P.PAINPG ---
Objective - Vital Signs Vital signs: Vital Signs Temp Pulse 63 07/05/22 09:19 Resp 18 07/05/22 09:19 BP 169/95 07/05/22 09:19 Pulse Ox 97 07/05/22 09:19 FiO2 Intake & Output 07/04/22 07/05/22 07/05/22 18:59 06:59 18:59 Weight 111.13 kg PQRS Measure Charge Sheet Mode of Arrival: Ambulatory Comment: A 61 yr old male with a history of severe and chronic low back pain secondary to lumbar degenerative disc diseases and lumbar spondylosis with facet arthropathy without myelopathy presents today for evaluation s/p ALIA L5-S1. Pt states he experienced 80% pain relief x 2 wks s/p procedure. Pain level is currently at 3/10 in intensity, constant, localized in the lower lumbar spine, achy in character w shooting towards the LLE. Pain is provoked as high as 8/10 by bending. Pain is alleviated with PT in Nov 2021, home guided stretches, chiropractic treatments weekly until received ALIA and now only goes as needed, ice, repositioning and rest. Interventional pain procedures completed include ALIA L5-S1 x1 Patient is currently on Motrin, Tylenol Patient denies any side effects of the medication(s), denies excessive drowsiness or sleepiness, denies suicidal ideation and reports that the current pain medication is helping to control the pain and improve activities of daily living. Patient denies any motor or sensory deficits. Patient denies any fever or night sweats, denies any change in the bowel movements or urination. Physical Examination: -Constitutional: Cooperative. Not in acute distress . - Neurologic: Cranial nerve II to XII intact. No focal neurological deficits. - Psychatric: Alert & oriented x 3. Matching mood & appropriate affect. Judgment and insight intact. - Musculoskeletal: Cervical spine: Muscle bulk/ tone/ strength in the bilateral upper extremities normal Vertebral body tenderness to palpation over Spurling test positive Distraction test positive Facet loading test positive Thoracic spine Muscle bulk / tone/ strength in the bilateral paraspinal muscles normal Vertebral body tender to palpation over Facet loading test positive Lumbar spine: Motor bulk/ tone/ strength lower extremities , thigh and legs : 5/5 Deep tendon reflexes : Normal Knee Jerk. Normal Ankle Jerk . Vertebral body tenderness to palpation over L5 Lumbar Facet Loading Test positive Straight Leg Raise: positive at 30 degrees right side/ left side Gaenslen's Test positive Sacral spine : Severe tenderness over the Sacroiliac joint: right side / left side Range of motion: Flexion of the lumbar spine <60 degrees Range of motion: Extension of the lumbar spine <20 degrees Gaenslen's Test positive Nicolás's Test positive Pastora test: positive right side / left side Thigh Thrust Test Sacral Thrust Test Assessment and plan: Chronic low back pain secondary to lumbar degenerative disc disease , lora mbar spondylosis with facet arthropathy without myelopathy Recommendation of L Paramedial ALIA L5-S1. May need a series of injections, up to 3 within a 6 mo period for optimal pain relief. Risks, benefits of procedure discussed and pt verbalized understanding. Admits to anticoagulant use or medical history of diabetes. Protocol for discontinuation/ continuation of medications eris procedure discussed. All patient questions answered I have spent less than 30 minutes on patient care today. Dr Linares was available by phone for the evaluation of this patient. The time was used to review the medical records including relevant urine studies and Prescription history (MAPs), review of the available imaging, evaluation and examination of the patient, coordination of care with the medical staff and if applicable referring physicians, as well as creation of the medical record - Pain Location Lower Back Non-Pharmacological Interventions: Chiropractic Treatment, Home Exercise, Ice, Inactivity, Physical Therapy, Position/Reposition, Stretching Pharmacological Interventions: Epidural, PRN Medication PQRS Narrative: Smoking Status Former smoker Blood Pressure 169/95 Pain Intensity [Lower Back] 3 Scale Used Numeric (1 - 10) Hx Alcohol Use (MH) Yes: 5-6 DRINKS A WEEK. Home Medications: Ambulatory Orders Escitalopram [Lexapro] 10 mg PO QAM 05/28/18 Isosorbide Mononitrate ER [Imdur] 30 mg PO QAM 05/28/18 hydroCHLOROthiazide 50 mg PO QAM 05/28/18 lisinopriL [Zestril] 20 mg PO BID 05/28/18 metFORMIN HCL [Glucophage] 1,000 mg PO BID 05/28/18 Atorvastatin [Lipitor] 80 mg PO QAM 05/02/21 Metoprolol Tartrate [Lopressor] 50 mg PO BID 05/02/21 Semaglutide [Ozempic] 0.5 mg SQ FR 05/02/21 glipiZIDE [Glucotrol] 10 mg PO QAM 05/02/21 hydrALAZINE HCL 50 mg PO BID 05/02/21 Aspirin [Adult Low Dose Aspirin EC] 81 mg PO DAILY #0 08/02/21 Dapagliflozin Propanediol [Farxiga] 10 mg PO QAM 06/18/22 Controlled Substance Measures - Controlled Substance Measures Is patient prescribed a controlled substance at discharge?: No
== END ==
LOC: PNWHC3 08:53
PROVIDERS: ATTEND Specialist
DX: M47.816 Spondylosis without myelopathy or radiculopathy, lumbar region (principal); M51.36 Other intervertebral disc degeneration, lumbar region; G89.29 Other chronic pain; F10.90 Alcohol use, unspecified, uncomplicated; Z87.891 Personal history of nicotine dependence; Z88.8 Allergy status to other drugs, medicaments and biological substances
CPT/HCPCS: 99211

== ENCOUNTER 2022-08-09 06:59 | Day surgery (SDC) | payer MEDICARE ==
[2022-08-08 08:53] VITALS: BMI 33.0
[2022-08-09 07:20] VITALS: TEMP 97.4
[2022-08-09 07:35] LABS: Glucose,Whole Blood 147 mg/dL (70-110)
[2022-08-09] MEDS ORDERED: IOPAMIDOL M200 10 ML VIAL ONE (07:57)
[2022-08-09] MEDS ORDERED: methylPREDNISolone ACETATE 40 MG/ML 1 ML VIAL ONE (07:57)
--- NOTE | 2022-08-09 08:07 | P.PCN ---
Date of Procedure: 08/09/22 Procedure(s) Performed: PREOPERATIVE DIAGNOSIS: 1- Lumbar spondylosis with facet arthropathy 2-Lumbar Radiculopathy. 3-lumbar spinal stenosis POSTOPERATIVE DIAGNOSIS: Same as preop diagnosis. PROCEDURE 1. Lumbar epidural steroid injection under fluoroscopic guidance at the L5-S1 level. (Fluoroscopy imaging was available in radiology department) 2. Lumbar epidurogram. ANESTHESIA: local Anesthetic with lidocaine 1% 3 mL only EBL: Minimal PROCEDURE INDICATION: The patient with low back pain and radiculitis symptoms unresponsive to conservative treatment. Fluoroscopy was used to optimize visualization of the needle placement and to maximize safety. PROCEDURE DESCRIPTION / TECHNIQUE: The patient was seen and identified in the preoperative area. Risks, benefits, complications including but not limited to infections ,bleeding ,allergic reaction to the medications ,nerve damage and not complete pain releife , and alternatives were discussed with the patient. The patient agreed to proceed with the procedure and signed the consent. IV was started, and vital signs were stable. Patient was taken to the OR and time out was completed. The patient was placed in the prone position on procedure table and a pillow was placed under the abdomen to reduce lumbar lordosis. The lumbosacral area was prepped and draped in the usual sterile fashion.ere closely monitored during the procedure. Vital signs was monitered during the entire procedure. Using anterior-posterior fluoroscopy, the L5-S1 interlaminar space was identified and the skin over this site was marked and then infiltrated with 1% lidocaine subcutaneously. Subsequently, a 20-gauge Tuohy epidural needle was inserted and advanced toward the epidural space using the ``Loss of resistance technique and guided by AP and lateral fluoroscopy. The correct needle position in the epidural space was verified with the injection of 2 mL of the water soluble contrast dye Isovue 200 contrast and observing an excellent epidurogram with the epidural spread of the dye, after negative aspiration for blood and CSF and in the absence of paresthesias. Again after negative aspiration, a 6 ml mixture containing 40 mg of Depo-medrol ( Preservetive Free ), and 2 ml of preservative free Normal Saline, and 2 ml of preservative free lidocaine 1% solution was injected and a washout of epidurogram was seen. Needle was withdrawn intact, skin was cleansed, and bandages were applied. COMPLICATIONS: None DISPOSITION / PLANS: The patient was placed in a supine position and transferred to the recovery area in a stable condition for observation. There was no evidence of lower extremity motor or sensory deficit after the procedure. Patient was discharged from the recovery room after meeting discharge criteria. Home discharge instructions were given to the patient by the staff. The patient was reexamined prior to discharge. The patient will schedule a follow up in the clinic in 2-4 weeks.
[2022-08-09 08:10] VITALS: RESP 16
[2022-08-09 08:26] VITALS: BP 145/83; PULSE 74
--- NOTE | 2022-08-09 09:38 | FL ---
EXAMINATION TYPE: FL guided pain mgmt statistic DATE OF EXAM: 08/09/2022 HISTORY: Fluoroscopy time 3 seconds of fluoroscopy provided. IMPRESSION: 1. Fluoroscopy time.
== END 2022-08-09 08:26 | disposition home or self-care (01) ==
LOC: ORPAIN 06:59
PROVIDERS: ATTEND Specialist
DX: M47.26 Other spondylosis with radiculopathy, lumbar region (principal); M48.061 Spinal stenosis, lumbar region without neurogenic claudication; M12.88 Other specific arthropathies, not elsewhere classified, other specified site
CPT/HCPCS: 62323; J1030; Q9966

== ENCOUNTER → 2022-08-29 | Outpatient (CLI) | payer MEDICARE ==
[2022-08-29 09:51] VITALS: BP 159/84; PULSE 72; RESP 16; TEMP 98.8
--- NOTE | 2022-08-29 14:24 | P.PAINPG ---
Objective - Vital Signs Vital signs: Vital Signs Temp 98.8 F 08/29/22 09:46 Pulse 72 08/29/22 09:46 Resp 16 08/29/22 09:46 BP 159/84 08/29/22 09:46 Pulse Ox 95 08/29/22 09:46 FiO2 Intake & Output 08/28/22 08/29/22 08/29/22 18:59 06:59 18:59 Weight 110.677 kg PQRS Measure Charge Sheet Mode of Arrival: Ambulatory Comment: A 62 yr old male with a history of severe and chronic low back pain secondary to lumbar DDD and spondylosis with facet arthropathy without myelopathy presents today for evaluation s/p L paramedial ALIA L5-S1 #2. Pt states he experienced 80% relief x 3 wks s/p procedure. Pain level is currently at 5 /10 in intensity, constant, localized in L lower lumbar spine, dull/ achy in character w shooting towards the R lumbar spine. Pain is provoked by lifting. Pain is alleviated with PT integrated w massage in Oct 2021, home exercise regimen, chiropractic treatments in May 2022 without relief, alternating heat & ice, medications (Motrin 800mg), sitting and rest. Interventional pain procedures completed include L paramedial ALIA L5-S1 x1, ALIA L5-S1 x1 Patient is currently on Motrin 800mg Patient denies any side effects of the medication(s), denies excessive drowsiness or sleepiness, denies suicidal ideation and reports that the current pain medication is helping to control the pain and improve activities of daily living. Patient denies any motor or sensory deficits. Patient denies any fever or night sweats, denies any change in the bowel movements or urination. Physical Examination: -Constitutional: Cooperative. Not in acute distress . - Neurologic: Cranial nerve II to XII intact. No focal neurological deficits. - Psychatric: Alert & oriented x 3. Matching mood & appropriate affect. Judgment and insight intact. - Musculoskeletal: Cervical spine: Muscle bulk/ tone/ strength in the bilateral upper extremities normal Vertebral body tenderness to palpation over Spurling test positive Distraction test positive Facet loading test positive Thoracic spine Muscle bulk / tone/ strength in the bilateral paraspinal muscles normal Vertebral body tender to palpation over Facet loading test positive Lumbar spine: Motor bulk/ tone/ strength lower extremities , thigh and legs : 5/5 Deep tendon reflexes : Normal Knee Jerk. Normal Ankle Jerk . Vertebral body tenderness to palpation over Lumbar Facet Loading Test positive Straight Leg Raise: positive at 30 degrees right side/ left side Gaenslen's Test positive Sacral spine : Severe tenderness over the Sacroiliac joint: right side / left side Range of motion: Flexion of the lumbar spine <60 degrees Range of motion: Extension of the lumbar spine <20 degrees Gaenslen's Test positive Pastora test: positive right side / left side Thigh Thrust Test Sacral Thrust Test Assessment and plan: Chronic low back pain secondary to lumbar degenerative disc disease, s pondylosis with facet arthropathy without myelopathy Pt experienced sufficient and substantial pain relief w prior procedures. He will manage residual pain w home modalities and may return to this clinic on an as needed basis. Risks, benefits of procedure discussed and pt verbalized understanding. All patient questions answered I have spent less than 30 minutes on patient care today. Dr Linares was available by phone for the evaluation of this patient. The time was used to review the medical records including relevant urine studies and Prescription history (MAPs), review of the available imaging, evaluation and examination of the patient, coordination of care with the medical staff and if applicable referring physicians, as well as creation of the medical record - Pain Location Left Lower Back Non-Pharmacological Interventions: Chiropractic Treatment, Heat, Home Exercise, Ice, Inactivity, Massage, Physical Therapy, Position/Reposition, Sitting, Stretching Pharmacological Interventions: Epidural, PRN Medication PQRS Narrative: Smoking Status Former smoker Blood Pressure 159/84 Pain Intensity [Left Lower 5 Back] Scale Used Numeric (1 - 10) Hx Alcohol Use (MH) Yes: 5-6 DRINKS A WEEK. Home Medications: Ambulatory Orders Escitalopram [Lexapro] 10 mg PO QAM 05/28/18 Isosorbide Mononitrate ER [Imdur] 30 mg PO QAM 05/28/18 hydroCHLOROthiazide 50 mg PO QAM 05/28/18 lisinopriL [Zestril] 20 mg PO BID 05/28/18 metFORMIN HCL [Glucophage] 1,000 mg PO BID 05/28/18 Atorvastatin [Lipitor] 80 mg PO QAM 05/02/21 Metoprolol Tartrate [Lopressor] 50 mg PO BID 05/02/21 glipiZIDE [Glucotrol] 10 mg PO QAM 05/02/21 hydrALAZINE HCL 50 mg PO BID 05/02/21 Aspirin [Adult Low Dose Aspirin EC] 81 mg PO DAILY #0 08/02/21 Dapagliflozin Propanediol [Farxiga] 10 mg PO QAM 06/18/22 Dulaglutide [Trulicity] 1.5 mg SQ FR 08/08/22 Nitroglycerin 0.4 mg SL Q5M PRN 08/08/22 Controlled Substance Measures - Controlled Substance Measures Is patient prescribed a controlled substance at discharge?: No
== END ==
LOC: PNWHC3 09:36
PROVIDERS: ATTEND Specialist
DX: M47.816 Spondylosis without myelopathy or radiculopathy, lumbar region (principal); M51.36 Other intervertebral disc degeneration, lumbar region; G89.29 Other chronic pain; Z87.891 Personal history of nicotine dependence; Z88.6 Allergy status to analgesic agent
CPT/HCPCS: 99211

== ENCOUNTER → 2023-03-19 | Outpatient (CLI) | payer MEDICARE ==
[2023-03-19 15:55] LABS: ALT 48 U/L (10-49); AST 26 U/L (14-35); Albumin 4.2 d/dL (3.8-4.9); Albumin/Globulin Ratio 1.62 Ratio (1.60-3.17); Alkaline Phosphatase 125 U/L (41-126); BUN/Creat Ratio 18.62 Ratio (12.00-20.00); Blood Urea Nitrogen 14.9 mg/dL (9.0-27.0); Calcium 9.3 mg/dL (8.7-10.3); Carbon Dioxide 29.8 mmol/L (21.6-31.8); Chloride 100 mmol/L (96-109); Chol/HDL Ratio 3.47 Ratio; Globulin 2.6 d/dL (1.6-3.3); Glucose 151 mg/dL (70-110); LDL Cholesterol,Calculated 33.6 mg/dL (0.0-131.0); Potassium 4.1 mmol/L (3.5-5.5); Sodium 141 mmol/L (135-145); Total Bilirubin 0.4 mg/dL (0.3-1.2); Total Protein 6.8 d/dL (6.2-8.2)
== END | disposition home or self-care (01) ==
LOC: LABWHC1 08:12
PROVIDERS: ATTEND Internal Medicine Interventional Cardiology
DX: E78.2 Mixed hyperlipidemia (principal)
CPT/HCPCS: 36415; 80053; 80061

== ENCOUNTER → 2023-09-24 | Outpatient (CLI) | payer MEDICARE ==
[2023-09-24 15:30] LABS: ALT 53 U/L (10-49); AST 28 U/L (14-35); LDL Cholesterol,Calculated 32.4 mg/dL (0.0-131.0)
== END | disposition home or self-care (01) ==
LOC: LABWHC1 07:49
PROVIDERS: ATTEND Internal Medicine Interventional Cardiology
DX: E78.2 Mixed hyperlipidemia (principal)
CPT/HCPCS: 36415; 80061; 84450; 84460

== ENCOUNTER → 2024-03-11 | Outpatient (CLI) | payer MEDICARE ==
[2024-03-11 15:37] LABS: ALT 32 U/L (10-49); AST 22 U/L (14-35); Chol/HDL Ratio 2.86 Ratio; LDL Cholesterol,Calculated 56.2 mg/dL (0.0-131.0); VLDL Calculation 19.34 mg/dL (5.00-40.00)
== END | disposition home or self-care (01) ==
LOC: LABWHC1 09:07
PROVIDERS: ATTEND Internal Medicine Interventional Cardiology
DX: E78.2 Mixed hyperlipidemia (principal)
CPT/HCPCS: 36415; 80061; 84450; 84460

== ENCOUNTER → 2024-04-17 | Outpatient (CLI) | payer MEDICARE ==
--- NOTE | 2024-04-18 19:49 | CT ---
EXAMINATION TYPE: CT pelvis wo con CT DLP: 855 mGycm, Automated exposure control for dose reduction was used. DATE OF EXAM: 04/17/2024 4:57 PM COMPARISON: CT abdomen pelvis most recent from CLINICAL INDICATION:Male, 63 years old with history of M46.1 SACROILIITIS, NOT ELSEWHERE CLASSIFIED; SACROILIITIS. PRE OP SX. TECHNIQUE: Axial CT pelvis wo con;Sagittal and coronal reformats were created on a separate workstat ion. Contrast used: mL of , (none if empty) Oral contrast used: without Oral Contrast (none if empty) FINDINGS: PELVIS BLADDER: Unremarkable REPRODUCTIVE: Unremarkable. ABDOMEN & PELVIS BOWEL: Visible included solids unremarkable. PERITONEUM/RETROPERITONEUM: No evidence of pneumoperitoneum or free fluid. VASCULATURE: No evidence of aortic aneurysm on limited view of the aorta above its bifurcation. MUSCULOSKELETAL: No acute osseous abnormalities. Vacuum joint phenomenon at the inferior SI joints. N o significant periarticular sclerosis suggests long-term sacroiliitis. Moderately pronounced facet david int osteoarthritic changes in the lower lumbar spine. Artificial left hip. LYMPH NODES: No gross evidence for lymphadenopathy. SOFT TISSUE/ABDOMINAL WALL: Unremarkable IMPRESSION: 1. Vacuum joint phenomenon of the SI joints. 2. Other findings as detailed above.
== END | disposition home or self-care (01) ==
LOC: RADCTMAIN 15:18
PROVIDERS: ATTEND Orthopaedic Surgery
DX: Z01.818 Encounter for other preprocedural examination (principal); M46.1 Sacroiliitis, not elsewhere classified
CPT/HCPCS: 72192

== ENCOUNTER → 2024-04-22 | Outpatient (CLI) | payer MEDICARE ==
--- NOTE | 2024-04-22 11:38 | XR ---
EXAMINATION TYPE: XR Hip Complete LT DATE OF EXAM: 04/22/2024 11:28 AM CLINICAL INDICATION:Male, 63 years old with history of M46.1 SARCOLITIS; PHH COMPARISON: None. TECHNIQUE: XR Hip Complete LT; hip was examined in the frontal and lateral projections FINDINGS: Post arthroplasty changes, hardware is intact, alignment is appropriate. No evidence of fra cture. No evidence of any acute osseous pathology or joint dislocation. IMPRESSION: Hip arthroplasty with hardware intact and in appropriate alignment. No acute fracture.
== END | disposition home or self-care (01) ==
LOC: RADXRMAIN 11:14
PROVIDERS: ATTEND Orthopaedic Surgery
DX: M46.1 Sacroiliitis, not elsewhere classified (principal)
CPT/HCPCS: 73502

== ENCOUNTER → 2024-04-29 | Outpatient (CLI) | payer MEDICARE | END | disposition home or self-care (01) | LOC: LABPAT 13:07 | PROVIDERS: ATTEND Orthopaedic Surgery | DX: Z01.812 Encounter for preprocedural laboratory examination (principal); M13.88 Other specified arthritis, other site; Z22.322 Carrier or suspected carrier of Methicillin resistant Staphylococcus aureus | CPT/HCPCS: 86850; 86900; 86901; 87070 ==

== ENCOUNTER 2024-05-14 06:00 | Day surgery (SDC) | payer MEDICARE ==
[2024-05-14] MEDS ORDERED: GABAPENTIN 300 MG CAP ONE ×2 (13:18)
[2024-05-14] MEDS ORDERED: ONDANSETRON 4 MG/2 ML VIAL ONE ×3 (13:18→17:41)
[2024-05-14] MEDS ORDERED: ACETAMINOPHEN TAB 500 MG TAB ONE ×2 (13:18)
[2024-05-14] MEDS ORDERED: LACTATED RINGERS 1,000 ML BAG ONE (15:30)
[2024-05-14] MEDS ORDERED: LIDOCAINE 1% INJ 10MG/ML (20 ML MDV) ONE (15:34)
[2024-05-14] MEDS ORDERED: ePHEDrine 50 MG/ML 1 ML VIAL ONE (15:34)
[2024-05-14] MEDS ORDERED: ROCURONIUM 10 MG/ML (5 ML VIAL) IV ONE (15:34)
[2024-05-14] MEDS ORDERED: fentaNYL (PF) 50 MCG/ML 2 ML AMP ONE (15:34)
[2024-05-14] MEDS ORDERED: SUCCINYLCHOLINE CHLORIDE 200 MG/10 ML VIAL IV ONE (15:34)
[2024-05-14] MEDS ORDERED: TRANEXAMIC 1,000 MG/100ML-NACL PREMIX BAG ONE (15:34)
[2024-05-14] MEDS ORDERED: HYDROmorphone (PF) 1 MG/ML ONE (15:34)
[2024-05-14] MEDS ORDERED: PROPOFOL 10 MG/ML 20 ML VIAL IV ONE (15:34)
[2024-05-14] MEDS ORDERED: MIDAZOLAM 2 MG/2 ML VIAL ONE (15:34)
[2024-05-14] MEDS ORDERED: KETOROLAC 15 MG/ML 1 ML VIAL ONE (17:57)
[2024-05-14] MEDS ORDERED: droPERidol 5 MG/2 ML VIAL ONE (18:31)
[2024-05-14] MEDS ORDERED: SCOPOLAMINE 1 MG/72 HR PATCH TRANSDERM ONE ×2 (19:17)
--- NOTE | 2024-06-23 18:21 | XR ---
EXAMINATION TYPE: XR lumbar spine 2 or 3V, FL guidance operating room COMPARISON: Pre Operative Images if available both CT/MRI or plain film CLINICAL INDICATION: Male, 63 years old with history of LEFT SI JOINT FUSION; TECHNIQUE: XR lumbar spine 2 or 3V, FL guidance operating room, multiple fluoroscopic images provided for procedure. Total fluoroscopy time: 0:46 minutes Total submitted images to PACS: 6 DAP: [id number] cGycm2 FINDINGS: Fluoroscopic images during internal fixation/arthroplasty demonstrate fixation hardware in appropriat e position. Hardware appears intact. No immediate complication identified. IMPRESSION: 1. No evidence for intraoperative complication. 2. Please see the operative/procedural note for further details. [facility], , 06/23/2024 6:19 PM
== END 2024-05-14 18:45 ==
LOC: OR 06:00
PROVIDERS: ATTEND Orthopaedic Surgery
DX: M13.88 Other specified arthritis, other site (principal); M46.1 Sacroiliitis, not elsewhere classified
CPT/HCPCS: 72100

== ENCOUNTER → 2024-09-18 | Outpatient (CLI) | payer MEDICARE ==
[2024-09-18 15:48] LABS: ALT 37 U/L (10-49); AST 26 U/L (14-35); Albumin 4.3 g/dL (3.8-4.9); Albumin/Globulin Ratio 1.65 Ratio (1.60-3.17); Alkaline Phosphatase 132 U/L (41-126); BUN/Creat Ratio 15.57 Ratio (12.00-20.00); Blood Urea Nitrogen 10.9 mg/dL (9.0-27.0); Calcium 9.5 mg/dL (8.7-10.3); Carbon Dioxide 30.2 mmol/L (21.6-31.8); Chloride 98 mmol/L (96-109); Chol/HDL Ratio 3.63 Ratio; Globulin 2.6 g/dL (1.6-3.3); Glucose 190 mg/dL (70-110); LDL Cholesterol,Calculated 48.7 mg/dL (0.0-131.0); Potassium 3.5 mmol/L (3.5-5.5); Sodium 140 mmol/L (135-145); Total Bilirubin 0.5 mg/dL (0.3-1.2); Total Protein 6.9 g/dL (6.2-8.2)
== END | disposition home or self-care (01) ==
LOC: LABWHC1 10:04
PROVIDERS: ATTEND Internal Medicine Interventional Cardiology
DX: E78.2 Mixed hyperlipidemia (principal)
CPT/HCPCS: 36415; 80053; 80061

== ENCOUNTER → 2024-12-04 | Outpatient (CLI) | payer MEDICARE ==
[2024-12-04 12:18] LABS: African American GFR (CKD) >90 (>60 ml/min/1.73 sqM); Blood Urea Nitrogen 11 mg/dL (9-20); Non-African American GFR(CKD) >90 (>60 ml/min/1.73 sqM)
--- NOTE | 2024-12-04 13:11 | CT ---
EXAMINATION TYPE: CT abdomen pelvis w con CT DLP: 1521 mGycm, Automated exposure control for dose reduction was used. DATE OF EXAM: 12/04/2024 1:00 PM COMPARISON: CT pelvis 04/17/2024 CLINICAL INDICATION:Male, 64 years old with history of groin pain; LT groin pain TECHNIQUE: Standard CT of the abdomen and pelvis following the administration of 100 cc of Isovue 3 00 IV contrast material and oral contrast. Coronal and sagittal reformats were performed. FINDINGS: LOWER CHEST: The visualized lung bases are clear. Coronary artery calcifications. ABDOMEN LIVER: Inferior right hepatic lobe subcentimeter hypodense lesion probably representing a cyst. GALLBLADDER AND BILE DUCTS: Unremarkable. PANCREAS: Unremarkable. SPLEEN: Lobulated appearance of the spleen with some peripheral calcification likely from prior injur y. ADRENAL GLANDS: 1.3 cm indeterminate right adrenal gland nodule. Poor visualization of the left adren al gland. KIDNEYS AND URETERS: No evidence of hydronephrosis. No right renal calculus. Nonobstructive left paul l 3 mm calculus. The kidneys enhance symmetrically. Right renal upper pole 1.2 cm cyst. Additional ri ght renal subcentimeter cortical hypodense lesion likely representing a cyst. Circumaortic left renal veins. Contrast is demonstrated within both collecting systems on the delayed phase. PELVIS BLADDER: Underdistended but grossly unremarkable with limited evaluation due to streak artifact from left hip prosthesis. REPRODUCTIVE: Coarse calcifications of the prostate gland are identified. Right scrotal surgical clip identified. ABDOMEN & PELVIS STOMACH AND BOWEL: Small hiatal hernia, duodenum is unremarkable. Enteric contrast reaches the mid sm all bowel. Pancolonic diverticulosis without evidence for acute diverticulitis. No focal bowel wall t hickening or surrounding inflammatory changes. The appendix is within normal limits. No evidence of b owel obstruction. PERITONEUM: No evidence of pneumoperitoneum or free fluid. VASCULATURE: Mild atherosclerotic calcifications are present throughout the abdominal aorta and its b ranches. No evidence of aortic aneurysm. MUSCULOSKELETAL: No acute osseous abnormalities. Postsurgical changes from left hip arthroplasty and the left SI joint fixation. This creates streak artifact which limits evaluation. Hardware appears in tact. Multilevel degenerative changes of the visualized thoracolumbar spine. There is some left glute al muscular atrophy. Most pronounced at L5-S1. Suggested DISH of the lower thoracic spine. LYMPH NODES: No evidence for lymphadenopathy. SOFT TISSUE/ABDOMINAL WALL: Unremarkable IMPRESSION: 1. No acute abdominal/pelvic process. 2. Pancolonic diverticulosis without evidence for acute diverticulitis. 3. Nonobstructive left renal calculus. 4. Indeterminate 1.3 cm right adrenal gland nodule. Probably benign. Consider 12 month follow-up adre nal CT. [facility], , 12/04/2024 1:08 PM
== END | disposition home or self-care (01) ==
LOC: RADCTMAIN 10:16
PROVIDERS: ATTEND Surgery
DX: N20.0 Calculus of kidney (principal); K57.30 Diverticulosis of large intestine without perforation or abscess without bleeding
CPT/HCPCS: 82565; 84520; 74177; 36415; Q9967

== ENCOUNTER → 2024-12-30 | Day surgery (SDC) | payer MEDICARE ==
[~2024-12-30] MED LIST changes: +HYDROmorphone 0.5 MG/0.5 ML SYRINGE IVP PRN; +KETAMINE HCL IN 0.9 % NACL 50 MG/5 ML SYRINGE ONE; -LACTATED RINGERS 1,000 ML IV SCH; -LIDOCAINE 1% (10MG/ML) FOR IV START INTRADERMA PRN; +MIDAZOLAM 2 MG/2 ML VIAL ONE; +PROPOFOL 10 MG/ML 20 ML VIAL IV ONE; +Pre Op ABX Message 1 EACH MISC MISCELLANE ONE; +diphenhydrAMINE 50 MG/ML 1 ML VIAL ONE; +fentaNYL (PF) 50 MCG/ML 2 ML AMP ONE
[2024-12-30] MEDS: IV FLUID CONTINUATION 1,000 ML IV ONE (12:56)
[2024-12-30 13:06] VITALS: TEMP 97.8
[2024-12-30 13:24] LABS: Glucose,Whole Blood 146 mg/dL (70-110)
[2024-12-30] MEDS: DEXAMETHASONE SOD PHOSPHATE 4 MG/ML 1 ML VIAL IV ONE (13:30)
[2024-12-30] MEDS: ONDANSETRON 4 MG/2 ML VIAL IVP ONE (13:30)
[2024-12-30] MEDS: FAMOTIDINE 20 MG/2 ML VIAL IV STA (13:39)
[2024-12-30] MEDS: LACTATED RINGERS 1,000 ML IV SCH (13:44)
--- NOTE | 2024-12-30 15:24 | P.HPIHPCON ---
History of Present Illness H&P Date: 12/30/24 Patient is a 64-year-old male in today for phlebectomy of his left lower extremity veins. He has history of a bleeding varicose vein that has been stable but due to this and the large varicosities throughout the leg has been recommended to undergo phlebectomy. Risk and benefits were discussed. He seemingly understood and was willing to proceed. Consent for Procedure: I have explained the operation/procedure to the patient, including the risks, benefits, side effects, alternative therapies (including not receiving the proposed treatment or service), the likelihood of the patient achieving his/her goals, and potential recuperation problems for the procedure/sedation/analgesia, as well as any blood products, if indicated. I also explained to the patient the risks, benefits and side effects of the alternatives, as well as the risks related to not receiving the proposed procedure, care, treatment, or services. Past Medical History Past Medical History: Coronary Artery Disease (CAD), Diabetes Mellitus, Hyperl ipidemia, Hypertension, Myocardial Infarction ([place]), Osteoarthritis (OA), Sleep Apnea/CPAP/BIPAP Additional Past Medical History / Comment(s): phlebitis left lower extremity, d iabetic neuropathy involving the feet and hands, obstructive sleep apnea uses CPAP. Last Myocardial Infarction Date:: 2013 History of Any Multi-Drug Resistant Organisms: None Reported Past Surgical History: Heart Catheterization With Stent, Hernia Repair, Orthopedic Surgery Additional Past Surgical History / Comment(s): Lt. 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 inguinal hernia, Lt. ZAYRA, Lt. SI joint fusion Past Anesthesia/Blood Transfusion Reactions: Motion Sickness, Postoperative Nausea & Vomiting (PONV) Date of Last Stent Placement:: 2013 Smoking Status: Former smoker - Past Family History Mother Family Medical History: COPD, Hypertension Brother(s) Family Medical History: Hypertension Father Family Medical History: Cancer Additional Family Medical History / Comment(s): Lung cancer. Medications and Allergies Home Medications Medication Instructions Recorded Confirmed Type Escitalopram [Lexapro] 10 mg PO QAM 05/28/18 12/30/24 History Isosorbide Mononitrate ER [Imdur] 30 mg PO QAM 05/28/18 12/30/24 History hydroCHLOROthiazide 25 mg PO QAM 05/28/18 12/30/24 History lisinopriL [Zestril] 20 mg PO BID 05/28/18 12/30/24 History metFORMIN HCL [Glucophage] 1,000 mg PO BID 05/28/18 12/30/24 History Atorvastatin [Lipitor] 40 mg PO QAM 05/02/21 12/30/24 History Metoprolol Tartrate [Lopressor] 50 mg PO BID 05/02/21 12/30/24 History glipiZIDE [Glucotrol] 10 mg PO QAM 05/02/21 12/30/24 History hydrALAZINE HCL 50 mg PO BID 05/02/21 12/30/24 History Aspirin [Adult Low Dose Aspirin EC] 81 mg PO DAILY #0 08/02/21 12/30/24 Rx Dapagliflozin Propanediol [Farxiga] 10 mg PO QAM 06/18/22 12/30/24 History Nitroglycerin 0.4 mg SL Q5M PRN 08/08/22 12/30/24 History Semaglutide [Ozempic] 2 mg SQ Q7D 12/28/24 12/30/24 History Ubidecarenone [Co Q-10] 200 mg PO DAILY 12/28/24 12/30/24 History Allergies Allergy/AdvReac Type Severity Reaction Status Date / Time fentanyl AdvReac Severe Nausea & Verified 12/30/24 13:06 Vomiting perflutren [From Definity] AdvReac Severe PATIENT Verified 12/30/24 13:06 STATES HE HAD TEMPORARY PARALYSIS Surgical - Exam Vital Signs Temp Pulse Resp BP Pulse Ox 97.8 F 69 16 153/91 95 12/30/24 13:04 12/30/24 13:04 12/30/24 13:04 12/30/24 13:04 12/30/24 13:04 General pleasant cooperative male in no acute distress. Left lower extremity with large ropey varicosities throughout. No obvious or ulcerated areas at this time Results - Labs 12/30/24 13:20 Abnormal Lab Results - Last 24 Hours (Table) 12/30/24 Range/Units 13:22 POC Glucose (mg/dL) 146 H (70-110) mg/dL Diabetes panel 12/30/24 Range/Units 13:20 Potassium 3.8 (3.5-5.1) mmol/L Pituitary panel 12/30/24 Range/Units 13:20 Potassium 3.8 (3.5-5.1) mmol/L Adrenal panel 12/30/24 Range/Units 13:20 Potassium 3.8 (3.5-5.1) mmol/L Assessment and Plan Assessment: Venous insufficiency Varicose veins with pain Plan: Plan today for left lower extremity phlebectomy. Veins were marked in the preoperative area. Questions were answered. Patient seemingly understands is willing to proceed
[2024-12-30] MEDS: LIDOCAINE 1% INJ 10MG/ML (30 ML VIAL-PF) SQ ONE ×2 (15:28→15:33)
[2024-12-30] MEDS: LACTATED RINGERS 1,000 ML IV ONE (16:44)
[2024-12-30 17:07] VITALS: RESP 18
--- NOTE | 2024-12-30 17:21 | P.OP ---
Date of Procedure: 12/30/24 Description of Procedure: Preoperative diagnosis: Varicose veins with pain of the left lower extremity, ulceration/bleeding varicosity Postoperative diagnosis: Same Procedure: Stab avulsion phlebectomy greater than 20 incisions Surgeon: Alysa Landis D.O. EBL: 75 cc IV fluids: See records Urine output: Not measured Drains: None Complications: None immediately apparent Condition: Stable to recovery Operative indication and findings: Patient is a 64-year-old male who has venous insufficiency and varicose veins. He had issues with a bleeding varicosity which he has had to be seen in the ER twice. Because of this he presents today he is found to be candidate for phlebectomy. He presents here today for this. Risks and benefits were discussed. He seemed understand and was willing to proceed. Procedure in detail: Patient is brought to the operating room placed in supine position. Left lower extremities prepped and draped in usual sterile fashion. A preprocedural timeout was performed and all parties were in agreement. All areas of previously marked veins were identified. The skin was anesthetized and standard fashion and incisions were made throughout the area of previous markings. Vein hooks and hemostats were utilized for avulsion phlebectomy.. When able they were ligated with 3-0 Prolene. Hemostasis was otherwise achieved with pressure. Area was then cleansed and dressings were applied. Patient tolerated procedure well was transferred back to recovery in stable condition. Plan - Discharge Summary Discharge Rx Participant: Yes New Discharge Prescriptions: No Action lisinopriL [Zestril] 20 mg PO BID hydroCHLOROthiazide 25 mg PO QAM Escitalopram [Lexapro] 10 mg PO QAM metFORMIN HCL [Glucophage] 1,000 mg PO BID Isosorbide Mononitrate ER [Imdur] 30 mg PO QAM glipiZIDE [Glucotrol] 10 mg PO QAM Metoprolol Tartrate [Lopressor] 50 mg PO BID Nitroglycerin 0.4 mg SL Q5M PRN PRN Reason: chest pain Semaglutide [Ozempic] 2 mg SQ Q7D Ubidecarenone [Co Q-10] 200 mg PO DAILY Atorvastatin [Lipitor] 40 mg PO QAM hydrALAZINE HCL 50 mg PO BID Aspirin [Adult Low Dose Aspirin EC] 81 mg PO DAILY #0 Dapagliflozin Propanediol [Farxiga] 10 mg PO QAM Discharge Medication List Escitalopram [Lexapro] 10 mg PO QAM 05/28/18 [History] Isosorbide Mononitrate ER [Imdur] 30 mg PO QAM 05/28/18 [History] hydroCHLOROthiazide 25 mg PO QAM 05/28/18 [History] lisinopriL [Zestril] 20 mg PO BID 05/28/18 [History] metFORMIN HCL [Glucophage] 1,000 mg PO BID 05/28/18 [History] Atorvastatin [Lipitor] 40 mg PO QAM 05/02/21 [History] Metoprolol Tartrate [Lopressor] 50 mg PO BID 05/02/21 [History] glipiZIDE [Glucotrol] 10 mg PO QAM 05/02/21 [History] hydrALAZINE HCL 50 mg PO BID 05/02/21 [History] Aspirin [Adult Low Dose Aspirin EC] 81 mg PO DAILY #0 08/02/21 [Rx] Dapagliflozin Propanediol [Farxiga] 10 mg PO QAM 06/18/22 [History] Nitroglycerin 0.4 mg SL Q5M PRN 08/08/22 [History] Semaglutide [Ozempic] 2 mg SQ Q7D 12/28/24 [History] Ubidecarenone [Co Q-10] 200 mg PO DAILY 12/28/24 [History] Follow up Appointment(s)/Referral(s): Alysa Baptiste DO [STAFF PHYSICIAN] - 2 Weeks Patient Instructions/Handouts: *Surgery [facility] - (Anesthesia) Discharge Instructions Outpatient Surgery Activity/Diet/Wound Care/Special Instructions: Leave wrap in place for 2 days. May shower after this comes off. No driving for 2 to 3 days. May return to regular diet and activities as normal. over the counter medications for pain control Discharge Disposition: HOME SELF-CARE
[2024-12-30] MEDS: ACETAMINOPHEN TAB 500 MG TAB PO STA (17:24)
[2024-12-30] MEDS: KETOROLAC 15 MG/ML 1 ML VIAL IVP STA (17:25)
[2024-12-30 17:42] VITALS: BP 159/98; PULSE 68
== END | disposition home or self-care (01) ==
LOC: OR 12:36
PROVIDERS: ATTEND Surgery
DX: I83.813 Varicose veins of bilateral lower extremities with pain (principal); I83.028 Varicose veins of left lower extremity with ulcer other part of lower leg; L97.829 Non-pressure chronic ulcer of other part of left lower leg with unspecified severity; I87.2 Venous insufficiency (chronic) (peripheral); I25.10 Atherosclerotic heart disease of native coronary artery without angina pectoris; I25.2 Old myocardial infarction; Z95.5 Presence of coronary angioplasty implant and graft; E11.42 Type 2 diabetes mellitus with diabetic polyneuropathy; I10 Essential (primary) hypertension; E78.5 Hyperlipidemia, unspecified; G47.33 Obstructive sleep apnea (adult) (pediatric); F32.A Depression, unspecified; Z91.89 Other specified personal risk factors, not elsewhere classified; Z79.84 Long term (current) use of oral hypoglycemic drugs; Z79.82 Long term (current) use of aspirin; Z79.85 Long-term (current) use of injectable non-insulin antidiabetic drugs; Z79.899 Other long term (current) drug therapy; Z87.891 Personal history of nicotine dependence; Z88.5 Allergy status to narcotic agent; Z91.041 Radiographic dye allergy status; Z86.72 Personal history of thrombophlebitis
CPT/HCPCS: 37766; 84132; J2250; J1200; J1100; J2405; J2003; J3010; J3490; J1885; J2704

== ENCOUNTER → 2025-03-05 | Outpatient (CLI) | payer MEDICARE ==
[2025-03-05 10:28] LABS: ALT 26 U/L (10-49); AST 22 U/L (14-35); Chol/HDL Ratio 3.23 Ratio; LDL Cholesterol,Calculated 53.5 mg/dL (0.0-131.0)
== END | disposition home or self-care (01) ==
LOC: LABWHC1 07:15
PROVIDERS: ATTEND Internal Medicine Interventional Cardiology
DX: E78.2 Mixed hyperlipidemia (principal)
CPT/HCPCS: 36415; 80061; 84450; 84460